=== PATIENT | female | born 1955 | race Caucasian/White ===

== ENCOUNTER → 2020-01-07 09:47 | Outpatient (CLI) | payer MEDICARE, SELFPAY ==
[2020-01-07 11:02] LABS: Blood Urea Nitrogen 19 mg/dL (7-17); Calcium 9.2 mg/dL (8.4-10.2); Carbon Dioxide 31 mmol/L (22-32); Chloride 107 mmol/L (98-107); Glucose 86 mg/dL (80-110); HEMOLYSIS < 15 (0-50); Potassium 4.5 mmol/L (3.4-5.1); Sodium 139 mmol/L (137-145)
[2020-01-07 11:52] LABS: Vitamin D 25 Hydroxy (D3) 29.5 ng/mL (30.0-100.0)
== END ==
PROVIDERS: PCP Student in an Organized Health Care Education/Training Program; Referring Provider Student in an Organized Health Care Education/Training Program; Visit Provider Student in an Organized Health Care Education/Training Program
DX: I10 Essential (primary) hypertension (principal); D86.9 Sarcoidosis, unspecified; E55.9 Vitamin D deficiency, unspecified
CPT/HCPCS: 36415; 80048; 82306

== ENCOUNTER → 2020-04-12 13:34 | Outpatient (CLI) | payer MEDICARE, SELFPAY ==
[2020-04-12] MEDS: COVID-19 VACC #1, MRNA(MOD) 100 MCG/0.5 ML VIAL IM (13:43)
== END ==
PROVIDERS: PCP Student in an Organized Health Care Education/Training Program; Visit Provider Internal Medicine
DX: Z23 Encounter for immunization (principal)
CPT/HCPCS: 0011A; 91301

== ENCOUNTER → 2020-05-10 13:25 | Outpatient (CLI) | payer MEDICARE, MEDICAID, SELFPAY ==
[2020-05-10] MEDS: COVID-19 VACC #2, MRNA(MOD) 100 MCG/0.5 ML VIAL IM (13:33)
== END ==
PROVIDERS: PCP Student in an Organized Health Care Education/Training Program; Visit Provider Internal Medicine
DX: Z23 Encounter for immunization (principal)
CPT/HCPCS: 0012A; 91301

== ENCOUNTER → 2020-05-17 13:09 | Outpatient (CLI) | payer MEDICARE, MEDICAID, SELFPAY | PROVIDERS: PCP Student in an Organized Health Care Education/Training Program; Referring Provider Student in an Organized Health Care Education/Training Program; Visit Provider Student in an Organized Health Care Education/Training Program | DX: Z13.820 Encounter for screening for osteoporosis (principal); Z78.0 Asymptomatic menopausal state; D86.9 Sarcoidosis, unspecified; Z91.89 Other specified personal risk factors, not elsewhere classified; Z87.891 Personal history of nicotine dependence; Z82.62 Family history of osteoporosis | CPT/HCPCS: 77080; 77081 ==

== ENCOUNTER → 2020-07-12 17:50 | Outpatient (CLI) | payer MEDICARE, MEDICAID, SELFPAY ==
--- NOTE | 2020-07-12 17:52 | DI.RAD.S_ITS ---
PROCEDURE: XR CERVICAL SPINE 2V OR 3V INDICATIONS: unexplained change in height TECHNIQUE: 3 view(s) of the cervical spine were acquired. COMPARISON: None. FINDINGS: Bones: No fracture. Multilevel spondylosis/endplate changes. Diffuse facet arthropathy. Severe diffuse narrowing of the cervical disc spaces throughout the entire cervical spine with relative sparing at C3-C4. Grade 1 retrolisthesis of C4 on C5 and C5 on C6. Levocurvature is noted of the cervical spine. Soft tissues: No prevertebral soft tissue swelling. IMPRESSION: Severe spondylosis and facet arthropathy as above Dictated by: Clint De La Cruz M.D. on 07/13/2020 at 8:18 Approved by: Clint De La Cruz M.D. on 07/13/2020 at 8:20
--- NOTE | 2020-07-12 17:52 | DI.RAD.S_ITS ---
PROCEDURE: XR LUMBAR SPINE 2-3V INDICATIONS: Low back pain TECHNIQUE: 3 views of the lumbar spine were acquired. COMPARISON: None. FINDINGS: Bones: No fracture . multilevel spondylosis/endplate changes. Diffuse facet arthropathy. Straightening of the normal lordotic curvature. Severe diffuse narrowing of the lumbar disc spaces, moderate narrowing at L5-S1. Partially visualized scoliosis with dextrocurvature of the lumbar spine. Soft tissues: Overlying bowel gas pattern is normal. No suspicious soft tissue calcifications. IMPRESSION: Severe diffuse lumbar spondylosis and facet arthropathy. Dextro scoliosis of the lumbar spine. Dictated by: Clint De La Cruz M.D. on 07/13/2020 at 8:32 Approved by: lCint De La Cruz M.D. on 07/13/2020 at 8:33
--- NOTE | 2020-07-12 17:52 | DI.RAD.S_ITS ---
PROCEDURE: XR THORACIC SPINE 1V INDICATIONS: unexplained change in height TECHNIQUE: 3 views of the thoracic spine were acquired. COMPARISON: None. FINDINGS: Bones: No fracture. Multilevel spondylosis/endplate changes. Diffuse facet arthropathy. Moderate diffuse narrowing of the thoracic disc spaces. Partially visualized scoliosis. Lower cervical spondylosis also noted. Increased thoracic kyphosis. Soft tissues: No paravertebral stripe thickening. IMPRESSION: Moderate diffuse thoracic spondylosis and facet disease. Dictated by: Clint De La Cruz M.D. on 07/13/2020 at 8:33 Approved by: Clint De La Cruz M.D. on 07/13/2020 at 8:34
== END ==
PROVIDERS: PCP Student in an Organized Health Care Education/Training Program; Referring Provider Student in an Organized Health Care Education/Training Program; Visit Provider Student in an Organized Health Care Education/Training Program
DX: M54.6 Pain in thoracic spine (principal); R29.890 Loss of height; M47.814 Spondylosis without myelopathy or radiculopathy, thoracic region; M47.816 Spondylosis without myelopathy or radiculopathy, lumbar region; M41.26 Other idiopathic scoliosis, lumbar region; M47.812 Spondylosis without myelopathy or radiculopathy, cervical region
CPT/HCPCS: 72020; 72040; 72100

== ENCOUNTER → 2021-01-17 09:13 | Outpatient (CLI) | payer MEDICARE, MEDICAID, SELFPAY ==
[2021-01-17 10:31] LABS: BUN Creatinine Ratio 20.7 (6-22); Blood Urea Nitrogen 23 mg/dL (7-17); Calcium 9.5 mg/dL (8.4-10.2); Carbon Dioxide 28 mmol/L (22-32); Chloride 102 mmol/L (98-107); Estimated Glomerular Filt Rate 49.2 mL/min (>60); Glucose 86 mg/dL (80-110); HEMOLYSIS < 15 (0-50); Potassium 4.6 mmol/L (3.4-5.1); Sodium 135 mmol/L (137-145)
== END ==
PROVIDERS: PCP Student in an Organized Health Care Education/Training Program; Referring Provider Student in an Organized Health Care Education/Training Program; Visit Provider Student in an Organized Health Care Education/Training Program
DX: I10 Essential (primary) hypertension (principal); E55.9 Vitamin D deficiency, unspecified
CPT/HCPCS: 36415; 80048; 82306

== ENCOUNTER 2021-02-06 15:15 | Outpatient (RCR) | payer MEDICARE, MEDICAID, SELFPAY ==
--- NOTE | 2021-01-24 15:15 | PT.OIE ---
Current Diagnoses Stiffness of other specified joint, not elsewhere classified (01/24/21) Lumbago with sciatica, left side (01/24/21) Pain in thoracic spine (01/24/21) Loss of height (01/24/21) Visit Care Team Role Provider Type Savage Kendall MD Attending Provider Physician Family Provider Primary Care Provider Referring Provider Specialty: Internal Medicine Address: [address] [place] [address], [address], [facility] Email: [email or web address] Physical Therapy Initial Evaluation PT-OP-A Visit Information Start: 01/24/21 17:34 Freq: Status: Active Protocol: Document 01/24/21 14:30 DCW (Rec: 01/24/21 17:45 DCW [id number]) Out-Patient Physical Therapy Visit Information Visit Information Visit Type Initial Evaluation Visit Start Time 14:30 Visit Stop Time 15:15 Total Visit Minutes 45 Visit Number 1 Number of DIRECTOR MATERNAL CHILD Visits 0 Evaluation Information Evaluation Date 01/24/21 PT-OP-B Current Condition Start: 01/24/21 17:34 Freq: Status: Active Protocol: Document 01/24/21 14:30 DCW (Rec: 01/24/21 17:45 DCW [id number]) Current Condition History of Current Condition Onset Date Multi-year history Current Complaints Degenerative changes in low back, mid back, and neck, stiffness and pain History of Current Condition Pt is a 65 year old female presenting with a multi-year history of low back, mid back, and cervical pain and stiffness. Pt notes that over the last few years, she has lost ~3 inches of height. Has significant pain throughout entire spine, has been unable to vaccum, standing to do dishes is really tough. Pt reports that if she stands completely straight, or if she is completely bent over, she is okay, but any position in between causes problems. Pt notes that frequently when walking, she experiences L LE numbness with a lot of pain right on my left buttcheek. Additionally, pt watches her grandson, who weighs 26 pounds , two days each week, and has difficulty holding him longer than a few minutes. Pt would also like to get back to doing gentle yoga. Prior Treatments and Tests Cervical x-ray: FINDINGS: Multilevel spondylosis/ endplate changes. Diffuse facet arthropathy. Severe diffuse narrowing of the cervical disc spaces throughout the entire cervical spine with relative sparing at C3-C4. Grade 1 retrolisthesis of C4 on C5 and C5 on C6. Levocurvature is noted of the cervical spine. abida De La Cruz M.D. on 07/13 Thoracic x-ray: MPRESSION: Moderate diffuse thoracic spondylosis and facet disease. abida De La Cruz M.D. on Lumbar x-ray: IMPRESSION: Severe diffuse lumbar spondylosis and facet arthropathy. Dextro scoliosis of the lumbar spine. abida De La Cruz M.D. on 2020 Treatment Goals Patient/Caregiver Goals My main goal is to get back to doing yoga. PT-OP-C Subjective Start: 01/24/21 17:34 Freq: Status: Active Protocol: Document 01/24/21 14:30 DCW (Rec: 01/24/21 17:45 DCW [id number]) OP-PT Subjective Patient Comments Patient Comments I don't know what I should be doing to help myself, and I don't know what I should be avoiding. Patient Questionnaires Oswestry Low Back Index Oswestry Score 13/50 = 26% Oswestry Impairment 20 to 39% Impaired (Score 20- 39) PT-OP-F Manual Assessment Start: 01/24/21 17:34 Freq: Status: Active Protocol: Document 01/24/21 14:30 DCW (Rec: 01/24/21 17:53 DCW [id number]) Manual Assessments Soft Tissue Assessment Soft Tissue Mobility Assessment Moderate tone left piriformis, bilateral paraspinals. mod- severe tone bilateral upper trap, scalenes, and levator. Joint Mobility Assessment Joint Mobility Assessment R hip stiffness with PROM, positive clunk. limited ROM and joint mobilization hypomobility along entire spine, C/T/L. PT-OP-K Range of Motion Start: 01/24/21 17:34 Freq: Status: Active Protocol: Document 01/24/21 14:30 DCW (Rec: 01/25/21 10:11 DCW [id number]) Lumbar Spine Range of Motion Lumbar Spine Active Degrees Testing Position Standing Flexion 55 Extension 10 Lateral Flexion Left 50 Lateral Flexion Right 45 Comments Lateral flexion measured in cm from fingertip to floor PT-OP-L Special Tests Start: 01/24/21 17:34 Freq: Status: Active Protocol: Document 01/24/21 14:30 DCW (Rec: 01/25/21 10:11 DCW [id number]) Special Tests Lumbar Spine Special Tests Lateral SI compression Test Results Negative Straight Leg Raise Test Results Mild hamstring tightness Slump Test Results Negative Manual Traction Test Results Significant relief Compression Test Results Increased pain in lumbar spine A-P Shearing Test Results Negative Hip Special Tests Piriformis Test Results Reproduces L LE radicular symptoms TAMIKA Test Results Negative PT-OP-M Strength Start: 01/24/21 17:34 Freq: Status: Active Protocol: Document 01/24/21 14:30 DCW (Rec: 01/25/21 10:11 DCW [id number]) Trunk Strength Trunk Manual Muscle Testing Testing Position Supine Core Stabilization Difficulty with contraction of TrA with verbal cues, 4-/5 Hip Strength Hip Manual Muscle Testing Bilateral Flexion (L2) 5 Normal Abduction 5 Normal Adduction 5 Normal External Rotation 5 Normal Internal Rotation 5 Normal Knee Strength Knee Manual Muscle Testing Bilateral Flexion (S2) 5 Normal Extension (L3) 5 Normal PT-OP-Q Treatments Start: 01/24/21 17:34 Freq: Status: Active Protocol: Document 01/24/21 14:30 DCW (Rec: 01/24/21 17:49 DCW [id number]) Therapeutic Exercises Supine Exercises 1 Supine Exercise Name Piriformis stretch Side left Comments Figure-4, Knee to opposite shoulder Sitting Exercises 1 Sitting Exercise Name Piriformis stretch Side left Comments Seated figure-4 PT-OP-T Assessment and Plan Start: 01/24/21 17:34 Freq: Status: Active Protocol: Document 01/24/21 14:30 DCW (Rec: 01/25/21 10:24 DCW [id number]) Physical Therapy Assessment Rehab Potential Rehabilitation Potential Good Evaluation Complexity Number of Personal Factors/Comorbidities 3 or More Number of Body Systems Impaired 3 Clinical Presentation at Evaluation Unstable Impairments Impairments Activity Tolerance,Functional Activities,Functional Mobility ,Pain,ROM,Soft Tissue Mobility ,Strength Goals Four Impairment Pt unable to vacuum home to do back pain Kids Activities Coach Goal (LTG) Pt to report splitting vacuuming duties with her 50/50 to 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 LTG Duration 03/26/21 Three Impairment Pt has difficulty holding young grandson Correction Goal (LTG) Pt to report ability to hold grandson for 15 minutes without increased low back pain LTG Duration 03/26/21 Two Impairment Pt unable to participate in gentle yoga program Correction Goal (LTG) Pt to return to yoga program at least 2 days/week with no increased low back pain LTG Duration 03/26/21 One Impairment Pt does not have an appropriate home exercise program Short Term Goal (STG) Pt to be independent and compliant with an appropriate HEP STG Duration 02/23/21 Assessment Summary Assessment Pt presents with signs and symptoms consistent with referring diagnosis of loss of disc height, as well as DDD of entire spine, limited cervical and lumbar ROM, core weakness, left-sided sciatica, and hypertonia of left piriformis. Pt limited with certain daily activities, like vacuuming, participating in yoga, holding her young grandson, or washing dishes at her sink. Pt should benefit from skilled therapy focusing on strengthening, ROM, STM, tone management, pain control, and flexibility. Physical Therapy Plan Frequency and Duration Frequency of Treatment 2x/Week Duration of Treatment Two months Plan of Care Start Date 01/24/21 Plan of Care End Date 03/26/21 Therapeutic Interventions Therapeutic Interventions Aquatic Therapy,Home Exercise Program,Manual Therapy, Neuromuscular Re-education, Patient/Caregiver Education, Self-Care/Home Management,Soft Tissue Mobilization, Therapeutic Activities, Therapeutic Exercises Modalities Cold Pack/Ice Massage,Electric Stimulation,Hot Packs, Ultrasound Next Visit Focus/Plan Next Note Type Treatment Note Next Visit Plan STM, stretching, core strengthening
--- NOTE | 2021-01-24 15:15 | PT.OPPOC ---
Physical, Occupational & Speech Therapy At [facility] Current Diagnoses Stiffness of other specified joint, not elsewhere classified (01/24/21) Lumbago with sciatica, left side (01/24/21) Pain in thoracic spine (01/24/21) Loss of height (01/24/21) Visit Care Team Role Provider Type Savage Kendall MD Attending Provider Physician Family Provider Primary Care Provider Referring Provider Specialty: Internal Medicine Address: [address] [place] [place] [address], [address], [facility] Email: [email or web address] Plan Of Care PT-OP-T Assessment and Plan Start: 01/24/21 17:34 Freq: Status: Active Protocol: Document 01/24/21 14:30 DCW (Rec: 01/25/21 10:24 DCW [id number]) Physical Therapy Assessment Rehab Potential Rehabilitation Potential Good Evaluation Complexity Number of Personal Factors/Comorbidities 3 or More Number of Body Systems Impaired 3 Clinical Presentation at Evaluation Unstable Impairments Impairments Activity Tolerance,Functional Activities,Functional Mobility ,Pain,ROM,Soft Tissue Mobility ,Strength Goals Four Impairment Pt unable to vacuum home to do back pain School Speech Language Pathologist Goal (LTG) Pt to report splitting vacuuming duties with her 50/50 to 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 LTG Duration 03/26/21 Three Impairment Pt has difficulty holding young grandson Retirement Goal (LTG) Pt to report ability to hold grandson for 15 minutes without increased low back pain LTG Duration 03/26/21 Two Impairment Pt unable to participate in gentle yoga program School Speech Language Pathologist Goal (LTG) Pt to return to yoga program at least 2 days/week with no increased low back pain LTG Duration 03/26/21 One Impairment Pt does not have an appropriate home exercise program Short Term Goal (STG) Pt to be independent and compliant with an appropriate HEP STG Duration 02/23/21 Assessment Summary Assessment Pt presents with signs and symptoms consistent with referring diagnosis of loss of disc height, as well as DDD of entire spine, limited cervical and lumbar ROM, core weakness, left-sided sciatica, and hypertonia of left piriformis. Pt limited with certain daily activities, like vacuuming, participating in yoga, holding her young grandson, or washing dishes at her sink. Pt should benefit from skilled therapy focusing on strengthening, ROM, STM, tone management, pain control, and flexibility. Physical Therapy Plan Frequency and Duration Frequency of Treatment 2x/Week Duration of Treatment Two months Plan of Care Start Date 01/24/21 Plan of Care End Date 03/26/21 Therapeutic Interventions Therapeutic Interventions Aquatic Therapy,Home Exercise Program,Manual Therapy, Neuromuscular Re-education, Patient/Caregiver Education, Self-Care/Home Management,Soft Tissue Mobilization, Therapeutic Activities, Therapeutic Exercises Modalities Cold Pack/Ice Massage,Electric Stimulation,Hot Packs, Ultrasound Next Visit Focus/Plan Next Note Type Treatment Note Next Visit Plan STM, stretching, core strengthening Plan of Care Dates Plan of Care Start Date 01/24/21 Plan of Care End Date 03/26/21 Electronically Signed by: Yovani Sanchez, PT 01/25/21 1024 Please Sign and Return: I have reviewed this Plan of Care and certify that the skilled therapy services above are required to meet the patient?s needs. Physician Signature Date Printed Name and Credentials Clinical Instructor Signature Printed Name and Credentials
--- NOTE | 2021-01-26 15:15 | PT.OTN ---
Current Diagnoses Stiffness of other specified joint, not elsewhere classified (01/26/21) Lumbago with sciatica, left side (01/26/21) Pain in thoracic spine (01/26/21) Loss of height (01/26/21) Physical Therapy Treatment Note PT-OP-A Visit Information Start: 01/24/21 17:34 Freq: Status: Active Protocol: Document 01/26/21 14:30 DCW (Rec: 01/26/21 15:15 DCW [id number]) Out-Patient Physical Therapy Visit Information Visit Information Visit Type Treatment Note Visit Start Time 14:30 Visit Stop Time 15:15 Total Visit Minutes 45 Visit Number 2 Number of PAYROLL TAX ANALYST Visits 0 Evaluation Information Evaluation Date 01/24/21 PT-OP-B Current Condition Start: 01/24/21 17:34 Freq: Status: Active Protocol: Document 01/24/21 14:30 DCW (Rec: 01/24/21 17:45 DCW [id number]) Current Condition History of Current Condition Onset Date Multi-year history Current Complaints Degenerative changes in low back, mid back, and neck, stiffness and pain History of Current Condition Pt is a 65 year old female presenting with a multi-year history of low back, mid back, and cervical pain and stiffness. Pt notes that over the last few years, she has lost ~3 inches of height. Has significant pain throughout entire spine, has been unable to vaccum, standing to do dishes is really tough. Pt reports that if she stands completely straight, or if she is completely bent over, she is okay, but any position in between causes problems. Pt notes that frequently when walking, she experiences L LE numbness with a lot of pain right on my left buttcheek. Additionally, pt watches her grandson, who weighs 26 pounds , two days each week, and has difficulty holding him longer than a few minutes. Pt would also like to get back to doing gentle yoga. Prior Treatments and Tests Cervical x-ray: FINDINGS: Multilevel spondylosis/ endplate changes. Diffuse facet arthropathy. Severe diffuse narrowing of the cervical disc spaces throughout the entire cervical spine with relative sparing at C3-C4. Grade 1 retrolisthesis of C4 on C5 and C5 on C6. Levocurvature is noted of the cervical spine. per Clint De La Cruz M.D. on 07/13 Thoracic x-ray: MPRESSION: Moderate diffuse thoracic spondylosis and facet disease. per Clint De La Cruz M.D. on Lumbar x-ray: IMPRESSION: Severe diffuse lumbar spondylosis and facet arthropathy. Dextro scoliosis of the lumbar spine. per Clint De La Cruz M.D. on 2020 Treatment Goals Patient/Caregiver Goals My main goal is to get back to doing yoga. PT-OP-C Subjective Start: 01/24/21 17:34 Freq: Status: Active Protocol: Document 01/26/21 14:30 DCW (Rec: 01/26/21 15:15 DCW [id number]) OP-PT Subjective Patient Comments Patient Comments I did the leg stretches yesterday, and then was able to do some yoga today. I have discovered that I can recreate some of the leg pain and numbness if I bend to the left . PT-OP-F Manual Assessment Start: 01/24/21 17:34 Freq: Status: Active Protocol: Document 01/24/21 14:30 DCW (Rec: 01/24/21 17:53 DCW [id number]) Manual Assessments Soft Tissue Assessment Soft Tissue Mobility Assessment Moderate tone left piriformis, bilateral paraspinals. mod- severe tone bilateral upper trap, scalenes, and levator. Joint Mobility Assessment Joint Mobility Assessment R hip stiffness with PROM, positive clunk. limited ROM and joint mobilization hypomobility along entire spine, C/T/L. PT-OP-K Range of Motion Start: 01/24/21 17:34 Freq: Status: Active Protocol: Document 01/24/21 14:30 DCW (Rec: 01/25/21 10:11 DCW [id number]) Lumbar Spine Range of Motion Lumbar Spine Active Degrees Testing Position Standing Flexion 55 Extension 10 Lateral Flexion Left 50 Lateral Flexion Right 45 Comments Lateral flexion measured in cm from fingertip to floor PT-OP-L Special Tests Start: 01/24/21 17:34 Freq: Status: Active Protocol: Document 01/24/21 14:30 DCW (Rec: 01/25/21 10:11 DCW [id number]) Special Tests Lumbar Spine Special Tests Lateral SI compression Test Results Negative Straight Leg Raise Test Results Mild hamstring tightness Slump Test Results Negative Manual Traction Test Results Significant relief Compression Test Results Increased pain in lumbar spine A-P Shearing Test Results Negative Hip Special Tests Piriformis Test Results Reproduces L LE radicular symptoms TAMIKA Test Results Negative PT-OP-M Strength Start: 01/24/21 17:34 Freq: Status: Active Protocol: Document 01/24/21 14:30 DCW (Rec: 01/25/21 10:11 DCW [id number]) Trunk Strength Trunk Manual Muscle Testing Testing Position Supine Core Stabilization Difficulty with contraction of TrA with verbal cues, 4-/5 Hip Strength Hip Manual Muscle Testing Bilateral Flexion (L2) 5 Normal Abduction 5 Normal Adduction 5 Normal External Rotation 5 Normal Internal Rotation 5 Normal Knee Strength Knee Manual Muscle Testing Bilateral Flexion (S2) 5 Normal Extension (L3) 5 Normal PT-OP-Q Treatments Start: 01/24/21 17:34 Freq: Status: Active Protocol: Document 01/26/21 14:30 DCW (Rec: 01/26/21 15:15 DCW [id number]) Gym Equipment Therapeutic Ball 1 Exercise Details Low Trunk Rotation Ball Size/Color Red - 55 cm Body Position Supine Therapeutic Exercises Supine Exercises 2 Supine Exercise Name Hamstring stretch Side bilateral 1 Supine Exercise Name Piriformis stretch Side bilateral Comments Knee to opposite shoulder Sidelying Exercises 1 Sidelying Exercise Name Hip Abduction Side bilateral Manual Therapy Treatment Soft Tissue Mobilization 1 Body Location B QL, ITB, Piriformis Mobilization Type Strumming,Sustained Pressure, Trigger Point Release Intensity/Depth Moderate Body Position Sidelying Manual Traction 1 Details Long-axis LE traction /c strap Body Position Supine PT-OP-T Assessment and Plan Start: 01/24/21 17:34 Freq: Status: Active Protocol: Document 01/26/21 14:30 DCW (Rec: 01/26/21 15:15 DCW [id number]) Physical Therapy Assessment Impairments Impairments Activity Tolerance,Functional Activities,Functional Mobility ,Pain,ROM,Soft Tissue Mobility ,Strength Goals Four Impairment Pt unable to vacuum home to do back pain Nursing Home Goal (LTG) Pt to report splitting vacuuming duties with her 50/50 to show improvement in tolerance to telephone sterilizer. LTG Duration 03/26/21 Three Impairment Pt has difficulty holding young grandson Nursing Home Goal (LTG) Pt to report ability to hold grandson for 15 minutes without increased low back pain LTG Duration 03/26/21 Two Impairment Pt unable to participate in gentle yoga program Hospital Carrier Goal (LTG) Pt to return to yoga program at least 2 days/week with no increased low back pain LTG Duration 03/26/21 One Impairment Pt does not have an appropriate home exercise program Short Term Goal (STG) Pt to be independent and compliant with an appropriate HEP STG Duration 02/23/21 Assessment Summary Assessment Pt tolerated today's treatment well, motivated to perform HEP, would like to work more on cervical spine next visit. Physical Therapy Plan Frequency and Duration Frequency of Treatment 2x/Week Duration of Treatment Two months Plan of Care Start Date 01/24/21 Plan of Care End Date 03/26/21 Therapeutic Interventions Therapeutic Interventions Aquatic Therapy,Home Exercise Program,Manual Therapy, Neuromuscular Re-education, Patient/Caregiver Education, Self-Care/Home Management,Soft Tissue Mobilization, Therapeutic Activities, Therapeutic Exercises Modalities Cold Pack/Ice Massage,Electric Stimulation,Hot Packs, Ultrasound Next Visit Focus/Plan Next Note Type Treatment Note Next Visit Plan STM, stretching, core strengthening
--- NOTE | 2021-01-31 11:15 | PT.OTN ---
Current Diagnoses Stiffness of other specified joint, not elsewhere classified (01/31/21) Lumbago with sciatica, left side (01/31/21) Pain in thoracic spine (01/31/21) Loss of height (01/31/21) Physical Therapy Treatment Note PT-OP-A Visit Information Start: 01/24/21 17:34 Freq: Status: Active Protocol: Document 01/31/21 10:30 DCW (Rec: 01/31/21 11:15 DCW [id number]) Out-Patient Physical Therapy Visit Information Visit Information Visit Type Treatment Note Visit Start Time 10:30 Visit Stop Time 11:15 Total Visit Minutes 45 Visit Number 3 Number of BELT LOOP MACHINE OPERATOR Visits 0 Evaluation Information Evaluation Date 01/24/21 PT-OP-B Current Condition Start: 01/24/21 17:34 Freq: Status: Active Protocol: Document 01/24/21 14:30 DCW (Rec: 01/24/21 17:45 DCW [id number]) Current Condition History of Current Condition Onset Date Multi-year history Current Complaints Degenerative changes in low back, mid back, and neck, stiffness and pain History of Current Condition Pt is a 65 year old female presenting with a multi-year history of low back, mid back, and cervical pain and stiffness. Pt notes that over the last few years, she has lost ~3 inches of height. Has significant pain throughout entire spine, has been unable to vaccum, standing to do dishes is really tough. Pt reports that if she stands completely straight, or if she is completely bent over, she is okay, but any position in between causes problems. Pt notes that frequently when walking, she experiences L LE numbness with a lot of pain right on my left buttcheek. Additionally, pt watches her grandson, who weighs 26 pounds , two days each week, and has difficulty holding him longer than a few minutes. Pt would also like to get back to doing gentle yoga. Prior Treatments and Tests Cervical x-ray: FINDINGS: Multilevel spondylosis/ endplate changes. Diffuse facet arthropathy. Severe diffuse narrowing of the cervical disc spaces throughout the entire cervical spine with relative sparing at C3-C4. Grade 1 retrolisthesis of C4 on C5 and C5 on C6. Levocurvature is noted of the cervical spine. per Clint De La Cruz M.D. on 07/13 Thoracic x-ray: MPRESSION: Moderate diffuse thoracic spondylosis and facet disease. per Clint De La Cruz M.D. on Lumbar x-ray: IMPRESSION: Severe diffuse lumbar spondylosis and facet arthropathy. Dextro scoliosis of the lumbar spine. per Clint De La Cruz M.D. on 2020 Treatment Goals Patient/Caregiver Goals My main goal is to get back to doing yoga. PT-OP-C Subjective Start: 01/24/21 17:34 Freq: Status: Active Protocol: Document 01/31/21 10:30 DCW (Rec: 01/31/21 11:15 DCW [id number]) OP-PT Subjective Patient Comments Patient Comments Pt doing well overall, would like her neck to be more addressed today. PT-OP-F Manual Assessment Start: 01/24/21 17:34 Freq: Status: Active Protocol: Document 01/24/21 14:30 DCW (Rec: 01/24/21 17:53 DCW [id number]) Manual Assessments Soft Tissue Assessment Soft Tissue Mobility Assessment Moderate tone left piriformis, bilateral paraspinals. mod- severe tone bilateral upper trap, scalenes, and levator. Joint Mobility Assessment Joint Mobility Assessment R hip stiffness with PROM, positive clunk. limited ROM and joint mobilization hypomobility along entire spine, C/T/L. PT-OP-K Range of Motion Start: 01/24/21 17:34 Freq: Status: Active Protocol: Document 01/24/21 14:30 DCW (Rec: 01/25/21 10:11 DCW [id number]) Lumbar Spine Range of Motion Lumbar Spine Active Degrees Testing Position Standing Flexion 55 Extension 10 Lateral Flexion Left 50 Lateral Flexion Right 45 Comments Lateral flexion measured in cm from fingertip to floor PT-OP-L Special Tests Start: 01/24/21 17:34 Freq: Status: Active Protocol: Document 01/24/21 14:30 DCW (Rec: 01/25/21 10:11 DCW [id number]) Special Tests Lumbar Spine Special Tests Lateral SI compression Test Results Negative Straight Leg Raise Test Results Mild hamstring tightness Slump Test Results Negative Manual Traction Test Results Significant relief Compression Test Results Increased pain in lumbar spine A-P Shearing Test Results Negative Hip Special Tests Piriformis Test Results Reproduces L LE radicular symptoms TAMIKA Test Results Negative PT-OP-M Strength Start: 01/24/21 17:34 Freq: Status: Active Protocol: Document 01/24/21 14:30 DCW (Rec: 01/25/21 10:11 DCW [id number]) Trunk Strength Trunk Manual Muscle Testing Testing Position Supine Core Stabilization Difficulty with contraction of TrA with verbal cues, 4-/5 Hip Strength Hip Manual Muscle Testing Bilateral Flexion (L2) 5 Normal Abduction 5 Normal Adduction 5 Normal External Rotation 5 Normal Internal Rotation 5 Normal Knee Strength Knee Manual Muscle Testing Bilateral Flexion (S2) 5 Normal Extension (L3) 5 Normal PT-OP-Q Treatments Start: 01/24/21 17:34 Freq: Status: Active Protocol: Document 01/31/21 10:30 DCW (Rec: 01/31/21 11:15 DCW [id number]) Therapeutic Exercises Sitting Exercises 2 Sitting Exercise Name Upper trap/Scalene stretches Standing Exercises 1 Standing Exercise Name Corner pec stretch Manual Therapy Treatment Soft Tissue Mobilization 2 Body Location Upper Trap, Scalenes, Levator, R>L Mobilization Type Strumming,Sustained Pressure Intensity/Depth Moderate Body Position Supine PT-OP-T Assessment and Plan Start: 01/24/21 17:34 Freq: Status: Active Protocol: Document 01/31/21 10:30 DCW (Rec: 01/31/21 11:15 DCW [id number]) Physical Therapy Assessment Impairments Impairments Activity Tolerance,Functional Activities,Functional Mobility ,Pain,ROM,Soft Tissue Mobility ,Strength Goals Four Impairment Pt unable to vacuum home to do back pain Halfway Goal (LTG) Pt to report splitting vacuuming duties with her 50/50 to show improvement in tolerance to driver engineer. LTG Duration 03/26/21 Three Impairment Pt has difficulty holding young grandson Halfway Goal (LTG) Pt to report ability to hold grandson for 15 minutes without increased low back pain LTG Duration 03/26/21 Two Impairment Pt unable to participate in gentle yoga program Halfway Goal (LTG) Pt to return to yoga program at least 2 days/week with no increased low back pain LTG Duration 03/26/21 One Impairment Pt does not have an appropriate home exercise program Short Term Goal (STG) Pt to be independent and compliant with an appropriate HEP STG Duration 02/23/21 Assessment Summary Assessment Pre treatment cervical ROM today was 40 flexion, 25 extension, 40 L rot, 55 R rot, 20 L LB, 30 R LB. Post-tx was 55 flexion, 35 extension, 55 L rot, 65 R rot, 25 L LB, 35 R LB. Pt demonstrated good knowledge with new HEP stretches. Physical Therapy Plan Frequency and Duration Frequency of Treatment 2x/Week Duration of Treatment Two months Plan of Care Start Date 01/24/21 Plan of Care End Date 03/26/21 Therapeutic Interventions Therapeutic Interventions Aquatic Therapy,Home Exercise Program,Manual Therapy, Neuromuscular Re-education, Patient/Caregiver Education, Self-Care/Home Management,Soft Tissue Mobilization, Therapeutic Activities, Therapeutic Exercises Modalities Cold Pack/Ice Massage,Electric Stimulation,Hot Packs, Ultrasound Next Visit Focus/Plan Next Note Type Treatment Note Next Visit Plan STM, stretching, core strengthening
--- NOTE | 2021-02-02 16:00 | PT.OTN ---
Current Diagnoses Stiffness of other specified joint, not elsewhere classified (02/02/21) Lumbago with sciatica, left side (02/02/21) Pain in thoracic spine (02/02/21) Loss of height (02/02/21) Physical Therapy Treatment Note PT-OP-A Visit Information Start: 01/24/21 17:34 Freq: Status: Active Protocol: Document 02/02/21 15:15 DCW (Rec: 02/02/21 16:00 DCW [id number]) Out-Patient Physical Therapy Visit Information Visit Information Visit Type Treatment Note Visit Start Time 15:15 Visit Stop Time 16:00 Total Visit Minutes 45 Visit Number 4 Number of EDUCATIONAL INSTITUTION PRESIDENT Visits 0 Evaluation Information Evaluation Date 01/24/21 PT-OP-B Current Condition Start: 01/24/21 17:34 Freq: Status: Active Protocol: Document 01/24/21 14:30 DCW (Rec: 01/24/21 17:45 DCW [id number]) Current Condition History of Current Condition Onset Date Multi-year history Current Complaints Degenerative changes in low back, mid back, and neck, stiffness and pain History of Current Condition Pt is a 65 year old female presenting with a multi-year history of low back, mid back, and cervical pain and stiffness. Pt notes that over the last few years, she has lost ~3 inches of height. Has significant pain throughout entire spine, has been unable to vaccum, standing to do dishes is really tough. Pt reports that if she stands completely straight, or if she is completely bent over, she is okay, but any position in between causes problems. Pt notes that frequently when walking, she experiences L LE numbness with a lot of pain right on my left buttcheek. Additionally, pt watches her grandson, who weighs 26 pounds , two days each week, and has difficulty holding him longer than a few minutes. Pt would also like to get back to doing gentle yoga. Prior Treatments and Tests Cervical x-ray: FINDINGS: Multilevel spondylosis/ endplate changes. Diffuse facet arthropathy. Severe diffuse narrowing of the cervical disc spaces throughout the entire cervical spine with relative sparing at C3-C4. Grade 1 retrolisthesis of C4 on C5 and C5 on C6. Levocurvature is noted of the cervical spine. per Clint De La Cruz M.D. on 07/13 Thoracic x-ray: MPRESSION: Moderate diffuse thoracic spondylosis and facet disease. per Clint De La Cruz M.D. on Lumbar x-ray: IMPRESSION: Severe diffuse lumbar spondylosis and facet arthropathy. Dextro scoliosis of the lumbar spine. per Clint De La Cruz M.D. on 2020 Treatment Goals Patient/Caregiver Goals My main goal is to get back to doing yoga. PT-OP-C Subjective Start: 01/24/21 17:34 Freq: Status: Active Protocol: Document 02/02/21 15:15 DCW (Rec: 02/02/21 16:00 DCW [id number]) OP-PT Subjective Patient Comments Patient Comments Pt did some yard work, which is always a low back issue, but it will be fine. PT-OP-F Manual Assessment Start: 01/24/21 17:34 Freq: Status: Active Protocol: Document 01/24/21 14:30 DCW (Rec: 01/24/21 17:53 DCW [id number]) Manual Assessments Soft Tissue Assessment Soft Tissue Mobility Assessment Moderate tone left piriformis, bilateral paraspinals. mod- severe tone bilateral upper trap, scalenes, and levator. Joint Mobility Assessment Joint Mobility Assessment R hip stiffness with PROM, positive clunk. limited ROM and joint mobilization hypomobility along entire spine, C/T/L. PT-OP-K Range of Motion Start: 01/24/21 17:34 Freq: Status: Active Protocol: Document 01/24/21 14:30 DCW (Rec: 01/25/21 10:11 DCW [id number]) Lumbar Spine Range of Motion Lumbar Spine Active Degrees Testing Position Standing Flexion 55 Extension 10 Lateral Flexion Left 50 Lateral Flexion Right 45 Comments Lateral flexion measured in cm from fingertip to floor PT-OP-L Special Tests Start: 01/24/21 17:34 Freq: Status: Active Protocol: Document 01/24/21 14:30 DCW (Rec: 01/25/21 10:11 DCW [id number]) Special Tests Lumbar Spine Special Tests Lateral SI compression Test Results Negative Straight Leg Raise Test Results Mild hamstring tightness Slump Test Results Negative Manual Traction Test Results Significant relief Compression Test Results Increased pain in lumbar spine A-P Shearing Test Results Negative Hip Special Tests Piriformis Test Results Reproduces L LE radicular symptoms TAMIKA Test Results Negative PT-OP-M Strength Start: 01/24/21 17:34 Freq: Status: Active Protocol: Document 01/24/21 14:30 DCW (Rec: 01/25/21 10:11 DCW [id number]) Trunk Strength Trunk Manual Muscle Testing Testing Position Supine Core Stabilization Difficulty with contraction of TrA with verbal cues, 4-/5 Hip Strength Hip Manual Muscle Testing Bilateral Flexion (L2) 5 Normal Abduction 5 Normal Adduction 5 Normal External Rotation 5 Normal Internal Rotation 5 Normal Knee Strength Knee Manual Muscle Testing Bilateral Flexion (S2) 5 Normal Extension (L3) 5 Normal PT-OP-Q Treatments Start: 01/24/21 17:34 Freq: Status: Active Protocol: Document 02/02/21 15:15 DCW (Rec: 02/02/21 16:00 DCW [id number]) Manual Therapy Treatment Soft Tissue Mobilization 1 Body Location B QL, ITB, Piriformis Mobilization Type Strumming,Sustained Pressure, Trigger Point Release Intensity/Depth Moderate Body Position Sidelying Manual Traction 1 Details Long-axis LE traction /c strap Body Position Supine PT-OP-T Assessment and Plan Start: 01/24/21 17:34 Freq: Status: Active Protocol: Document 02/02/21 15:15 DCW (Rec: 02/02/21 16:00 DCW [id number]) Physical Therapy Assessment Impairments Impairments Activity Tolerance,Functional Activities,Functional Mobility ,Pain,ROM,Soft Tissue Mobility ,Strength Goals Four Impairment Pt unable to vacuum home to do back pain Boomswing Operator Goal (LTG) Pt to report splitting vacuuming duties with her 50/50 to show improvement in tolerance to on site coordinator. LTG Duration 03/26/21 Three Impairment Pt has difficulty holding young grandson Mcc Goal (LTG) Pt to report ability to hold grandson for 15 minutes without increased low back pain LTG Duration 03/26/21 Two Impairment Pt unable to participate in gentle yoga program Boomswing Operator Goal (LTG) Pt to return to yoga program at least 2 days/week with no increased low back pain LTG Duration 03/26/21 One Impairment Pt does not have an appropriate home exercise program Short Term Goal (STG) Pt to be independent and compliant with an appropriate HEP STG Duration 02/23/21 Assessment Summary Assessment Focused more on low back STM today due to stiffness after pt was doing yard work. Pt feeling good about overall progress and her HEP, will likely discharge following her next scheduled visit. Physical Therapy Plan Frequency and Duration Frequency of Treatment 2x/Week Duration of Treatment Two months Plan of Care Start Date 01/24/21 Plan of Care End Date 03/26/21 Therapeutic Interventions Therapeutic Interventions Aquatic Therapy,Home Exercise Program,Manual Therapy, Neuromuscular Re-education, Patient/Caregiver Education, Self-Care/Home Management,Soft Tissue Mobilization, Therapeutic Activities, Therapeutic Exercises Modalities Cold Pack/Ice Massage,Electric Stimulation,Hot Packs, Ultrasound Next Visit Focus/Plan Next Note Type Treatment Note Next Visit Plan STM, stretching, core strengthening
--- NOTE | 2021-02-06 15:53 | PT.OTN ---
Current Diagnoses Stiffness of other specified joint, not elsewhere classified (02/06/21) Lumbago with sciatica, left side (02/06/21) Pain in thoracic spine (02/06/21) Loss of height (02/06/21) Physical Therapy Treatment Note PT-OP-A Visit Information Start: 01/24/21 17:34 Freq: Status: Active Protocol: Document 02/06/21 15:15 DCW (Rec: 02/06/21 15:53 DCW [id number]) Out-Patient Physical Therapy Visit Information Visit Information Visit Type Discharge Summary Visit Start Time 15:15 Visit Stop Time 15:45 Total Visit Minutes 30 Visit Number 5 Number of ACCOUNTING AUDITOR Visits 0 Evaluation Information Evaluation Date 01/24/21 PT-OP-B Current Condition Start: 01/24/21 17:34 Freq: Status: Active Protocol: Document 01/24/21 14:30 DCW (Rec: 01/24/21 17:45 DCW [id number]) Current Condition History of Current Condition Onset Date Multi-year history Current Complaints Degenerative changes in low back, mid back, and neck, stiffness and pain History of Current Condition Pt is a 65 year old female presenting with a multi-year history of low back, mid back, and cervical pain and stiffness. Pt notes that over the last few years, she has lost ~3 inches of height. Has significant pain throughout entire spine, has been unable to vaccum, standing to do dishes is really tough. Pt reports that if she stands completely straight, or if she is completely bent over, she is okay, but any position in between causes problems. Pt notes that frequently when walking, she experiences L LE numbness with a lot of pain right on my left buttcheek. Additionally, pt watches her grandson, who weighs 26 pounds , two days each week, and has difficulty holding him longer than a few minutes. Pt would also like to get back to doing gentle yoga. Prior Treatments and Tests Cervical x-ray: FINDINGS: Multilevel spondylosis/ endplate changes. Diffuse facet arthropathy. Severe diffuse narrowing of the cervical disc spaces throughout the entire cervical spine with relative sparing at C3-C4. Grade 1 retrolisthesis of C4 on C5 and C5 on C6. Levocurvature is noted of the cervical spine. per Clint De La Cruz M.D. on 07/13 Thoracic x-ray: MPRESSION: Moderate diffuse thoracic spondylosis and facet disease. per Clint De La Cruz M.D. on Lumbar x-ray: IMPRESSION: Severe diffuse lumbar spondylosis and facet arthropathy. Dextro scoliosis of the lumbar spine. per Clint De La Cruz M.D. on 2020 Treatment Goals Patient/Caregiver Goals My main goal is to get back to doing yoga. PT-OP-C Subjective Start: 01/24/21 17:34 Freq: Status: Active Protocol: Document 02/06/21 15:15 DCW (Rec: 02/06/21 15:53 DCW [id number]) OP-PT Subjective Patient Comments Patient Comments Actually, it's a good day. I think we've accomplished what we needed to accomplish, and I feel good about it. PT-OP-F Manual Assessment Start: 01/24/21 17:34 Freq: Status: Active Protocol: Document 01/24/21 14:30 DCW (Rec: 01/24/21 17:53 DCW [id number]) Manual Assessments Soft Tissue Assessment Soft Tissue Mobility Assessment Moderate tone left piriformis, bilateral paraspinals. mod- severe tone bilateral upper trap, scalenes, and levator. Joint Mobility Assessment Joint Mobility Assessment R hip stiffness with PROM, positive clunk. limited ROM and joint mobilization hypomobility along entire spine, C/T/L. PT-OP-K Range of Motion Start: 01/24/21 17:34 Freq: Status: Active Protocol: Document 01/24/21 14:30 DCW (Rec: 01/25/21 10:11 DCW [id number]) Lumbar Spine Range of Motion Lumbar Spine Active Degrees Testing Position Standing Flexion 55 Extension 10 Lateral Flexion Left 50 Lateral Flexion Right 45 Comments Lateral flexion measured in cm from fingertip to floor PT-OP-L Special Tests Start: 01/24/21 17:34 Freq: Status: Active Protocol: Document 01/24/21 14:30 DCW (Rec: 01/25/21 10:11 DCW [id number]) Special Tests Lumbar Spine Special Tests Lateral SI compression Test Results Negative Straight Leg Raise Test Results Mild hamstring tightness Slump Test Results Negative Manual Traction Test Results Significant relief Compression Test Results Increased pain in lumbar spine A-P Shearing Test Results Negative Hip Special Tests Piriformis Test Results Reproduces L LE radicular symptoms TAMIKA Test Results Negative PT-OP-M Strength Start: 01/24/21 17:34 Freq: Status: Active Protocol: Document 01/24/21 14:30 DCW (Rec: 01/25/21 10:11 DCW [id number]) Trunk Strength Trunk Manual Muscle Testing Testing Position Supine Core Stabilization Difficulty with contraction of TrA with verbal cues, 4-/5 Hip Strength Hip Manual Muscle Testing Bilateral Flexion (L2) 5 Normal Abduction 5 Normal Adduction 5 Normal External Rotation 5 Normal Internal Rotation 5 Normal Knee Strength Knee Manual Muscle Testing Bilateral Flexion (S2) 5 Normal Extension (L3) 5 Normal PT-OP-Q Treatments Start: 01/24/21 17:34 Freq: Status: Active Protocol: Document 02/06/21 15:15 DCW (Rec: 02/06/21 15:53 DCW [id number]) Manual Therapy Treatment Soft Tissue Mobilization 1 Body Location B QL, ITB, Piriformis Mobilization Type Strumming,Sustained Pressure, Trigger Point Release Intensity/Depth Moderate Body Position Sidelying PT-OP-T Assessment and Plan Start: 01/24/21 17:34 Freq: Status: Active Protocol: Document 02/06/21 15:15 DCW (Rec: 02/06/21 15:53 DCW [id number]) Physical Therapy Assessment Impairments Impairments Activity Tolerance,Functional Activities,Functional Mobility ,Pain,ROM,Soft Tissue Mobility ,Strength Goals Four Impairment Pt unable to vacuum home to do back pain Valet Attendant Goal (LTG) Pt to report splitting vacuuming duties with her 50/50 to show improvement in tolerance to kindergarten prep teacher. LTG Duration Improving Three Impairment Pt has difficulty holding young grandson Chcf Goal (LTG) Pt to report ability to hold grandson for 15 minutes without increased low back pain LTG Duration Improving Two Impairment Pt unable to participate in gentle yoga program Valet Attendant Goal (LTG) Pt to return to yoga program at least 2 days/week with no increased low back pain LTG Duration Met One Impairment Pt does not have an appropriate home exercise program Short Term Goal (STG) Pt to be independent and compliant with an appropriate HEP STG Duration Met Progress Towards Goals Progress Towards Goals Progressing Toward Goals Assessment Summary Assessment Pt doing very well overall, approaching her goals, feels comfortable switching to independent HEP. Pt will be discharged from skilled PT at this time. Physical Therapy Plan Frequency and Duration Frequency of Treatment 2x/Week Duration of Treatment Two months Plan of Care Start Date 01/24/21 Plan of Care End Date 03/26/21 Therapeutic Interventions Therapeutic Interventions Aquatic Therapy,Home Exercise Program,Manual Therapy, Neuromuscular Re-education, Patient/Caregiver Education, Self-Care/Home Management,Soft Tissue Mobilization, Therapeutic Activities, Therapeutic Exercises Modalities Cold Pack/Ice Massage,Electric Stimulation,Hot Packs, Ultrasound Discharge Physical Therapy Discharge Reasons Patient Request Next Visit Focus/Plan Next Note Type Discharge Summary
== END 2021-04-17 09:36 ==
LOC: PHYS 15:15
PROVIDERS: Family Provider Student in an Organized Health Care Education/Training Program; PCP Student in an Organized Health Care Education/Training Program; Referring Provider Student in an Organized Health Care Education/Training Program; Visit Provider Student in an Organized Health Care Education/Training Program
DX: M54.6 Pain in thoracic spine (principal); R29.890 Loss of height; M25.69 Stiffness of other specified joint, not elsewhere classified; M54.42 Lumbago with sciatica, left side
CPT/HCPCS: 97110; 97140; 97162

== ENCOUNTER → 2021-06-26 15:15 | Outpatient (CLI) | payer MEDICARE, SELFPAY ==
--- NOTE | 2021-06-26 | DI.MG.S_ITS ---
BILATERAL DIGITAL SCREENING MAMMOGRAM 3D/2D WITH CAD: 06/26/2021 CLINICAL: Routine screening. Family history of breast cancer. Comparison is made to exams dated: 04/30/2019 mammogram and 03/30/2014 mammogram - outside facility. There are scattered fibroglandular elements in both breasts. Current study was also evaluated with a Computer Aided Detection (CAD) system. No significant masses, calcifications, or other findings are seen in either breast. There has been no significant interval change. IMPRESSION: NEGATIVE There is no mammographic evidence of malignancy. A 1 year screening mammogram is recommended. This exam was interpreted at Station ID: [id number]. NOTE: For mammograms, a report in lay terms will be sent to the patient. Approximately 15% of breast malignancies will not be visualized mammographically. In the management of a palpable breast mass, a negative mammogram must not discourage biopsy of a clinically suspicious lesion. Electronically Signed By: Maurizio read/elza:06/27/2021 08:27:33 letter sent: Normal Exam ACR BI-RADS Category 1: Negative [id number]
== END ==
PROVIDERS: Family Provider Student in an Organized Health Care Education/Training Program; PCP Student in an Organized Health Care Education/Training Program; Referring Provider Student in an Organized Health Care Education/Training Program; Visit Provider Student in an Organized Health Care Education/Training Program
DX: Z12.31 Encounter for screening mammogram for malignant neoplasm of breast (principal); Z80.3 Family history of malignant neoplasm of breast
CPT/HCPCS: 77063; 77067

== ENCOUNTER → 2021-12-05 08:28 | Outpatient (CLI) | payer MEDICARE, MEDICAID, SELFPAY ==
--- NOTE | 2021-12-05 08:28 | DI.US.S_ITS ---
PROCEDURE: US EXTREMITY NONVASC LOWER RT INDICATIONS: Swelling and history of masses in leg above knee TECHNIQUE: Real-time scanning was performed of the right thigh, with image documentation. COMPARISON: None. FINDINGS: Irregular partially cystic hypoechoic region is seen adjacent to the area of the scar at the right anterior thigh measuring 5.2 x 1.5 x 2.8 cm. Circumscribed hypointense lesion measuring 0.9 x 0.7 x 0.7 cm within the deep subcutaneous tissues anterolateral to the knee. IMPRESSION: 1. Irregular partially cystic area measuring 5.2 cm in the region of the surgical scar at the anterior right thigh is of uncertain etiology, possibly representing postsurgical changes versus an irregular plexiform mass. 2. Nonspecific 0.9 cm circumscribed ovoid hypoechoic lesion in the deep subcutaneous tissues anterolateral to the thigh, which may represent a complex cyst versus benign or malignant soft tissue mass. 3. Recommend targeted MRI of the femur/thigh with and without contrast for further evaluation. Dictated by: Maurizio Solano M.D. on 12/05/2021 at 11:02 Approved by: Maurizio Solano M.D. on 12/05/2021 at 11:11
== END ==
PROVIDERS: Family Provider Student in an Organized Health Care Education/Training Program; PCP Nurse Practitioner; Referring Provider Nurse Practitioner; Visit Provider Nurse Practitioner
DX: R22.41 Localized swelling, mass and lump, right lower limb (principal); Z86.018 Personal history of other benign neoplasm
CPT/HCPCS: 76882

== ENCOUNTER → 2021-12-18 12:51 | Outpatient (CLI) | payer MEDICARE, MEDICAID, SELFPAY ==
--- NOTE | 2021-12-18 13:22 | DI.MRI.S_ITS ---
PROCEDURE: MR FEMUR RT WO/W CON INDICATIONS: abnormal US imaging TECHNIQUE: Noncontrast coronal T1 spin echo and STIR, sagittal T1 spin echo with fat saturation and STIR, axial T1 spin echo and T2 fast spin echo with fat saturation. After the administration of contrast, axial/sagittal/coronal T1 spin echo with fat saturation through the right thigh . COMPARISON: [facility], US, US EXTREMITY NONVASC LOWER RT, 12/05/2021, 9:01. FINDINGS: Image quality: Excellent. Bones: The visualized bone marrow demonstrates normal signal on all sequences. The overlying cortex appears intact. No abnormal intraosseous enhancement. Soft tissues: Heterogeneous signal is seen in the subcutaneous tissues at the anterior aspect of the distal thigh in the region of the prior surgery measuring up to 6.8 cm and superior inferior extent by approximately 3.1 x 1.5 cm on axial images. This corresponds with prior sonographic findings on the ultrasound from 12/05/2021. Predominantly fat signal is seen with some [id number] edema but no significant contrast enhancement. Findings most likely represent postsurgical scarring and fat necrosis. A circumscribed [id number] mass is seen in the subcutaneous tissues of the anterior distal thigh just anterior to the distal quadriceps tendon insertion. The mass measures approximately 0.8 x 0.7 x 0.8 cm with homogeneous postcontrast enhancement. This corresponds with the separate sonographic finding on the prior exam. No additional enhancing soft tissue mass is seen. The musculature of the thigh is normal in signal intensity and bulk. No significant right knee effusion. There is a small medial popliteal cyst. There is mild proximal hamstring tendinosis. IMPRESSION: 1. Heterogeneous nonenhancing 6.8 cm area of abnormal signal at the anterior right thigh in the region of the prior surgery is most consistent with postsurgical scarring and fat necrosis. 2. 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 Dictated by: Maurizio Solano M.D. on 12/19/2021 at 10:02 Approved by: Maurizio Solano M.D. on 12/19/2021 at 10:14
== END ==
PROVIDERS: Family Provider Student in an Organized Health Care Education/Training Program; PCP Nurse Practitioner; Referring Provider Nurse Practitioner; Visit Provider Nurse Practitioner
DX: R22.41 Localized swelling, mass and lump, right lower limb (principal)
CPT/HCPCS: 73720; A9579

== ENCOUNTER → 2022-02-12 07:47 | Outpatient (CLI) | payer MEDICARE, MEDICAID, SELFPAY ==
[2022-02-12 10:12] LABS: Alanine Aminotransferase 20 IU/L (<35); Albumin 3.9 g/dL (3.5-5.0); Albumin Globulin Ratio 1.6 (1.0-2.8); Alkaline Phosphatase 61 U/L (38-126); Aspartate Aminotransferase 24 IU/L (14-36); BUN Creatinine Ratio 23.5 (6-22); Bilirubin Total 0.6 mg/dL (0.2-1.3); Blood Urea Nitrogen 23 mg/dL (7-17); Calcium 8.9 mg/dL (8.4-10.2); Carbon Dioxide 28 mmol/L (22-32); Chloride 104 mmol/L (98-107); Cholesterol 245 mg/dL (140-199); Estimated Glomerular Filt Rate > 60 mL/min (>60); Globulin 2.5 g/dL (1.7-4.1); Glucose 80 mg/dL (80-110); HDL Cholesterol 54 mg/dL (40-60); HEMOLYSIS < 15 (0-50); LDL Cholesterol Calculated 166 mg/dL (<100); Potassium 4.3 mmol/L (3.4-5.1); Sodium 137 mmol/L (137-145); Total Protein 6.4 g/dL (6.3-8.2); Triglycerides 124 mg/dL (35-150)
[2022-02-12 10:32] LABS: Free T3, Triiodothyronine Free 3.52 pg/mL (2.77-5.27); Free T4, Direct Thyroxine 0.93 ng/dL (0.78-2.19)
[2022-02-12 12:45] LABS: Hep C Virus Ab w/Reflex Quant NEGATIVE s/c (NEGATIVE)
== END ==
PROVIDERS: Family Provider Student in an Organized Health Care Education/Training Program; PCP Nurse Practitioner; Referring Provider Nurse Practitioner; Visit Provider Nurse Practitioner
DX: E78.2 Mixed hyperlipidemia (principal); I10 Essential (primary) hypertension; F51.04 Psychophysiologic insomnia; N18.31 Chronic kidney disease, stage 3a; Z79.899 Other long term (current) drug therapy; Z11.59 Encounter for screening for other viral diseases
CPT/HCPCS: 36415; 80053; 80061; 84439; 84443; 84481; 86803

== ENCOUNTER → 2022-02-20 09:31 | Outpatient (CLI) | payer MEDICARE, MEDICAID, SELFPAY ==
[2022-02-20 12:17] LABS: Creatinine Urine Random 16.3 mg/dL
[2022-02-20 12:24] LABS: Microalbumin Urine Random < 0.6 mg/dL (0-1.6)
[2022-02-21 13:47] LABS: Fecal Immunochemical Test Negative (Negative)
== END ==
PROVIDERS: Family Provider Student in an Organized Health Care Education/Training Program; PCP Nurse Practitioner; Referring Provider Nurse Practitioner; Visit Provider Nurse Practitioner
DX: E78.2 Mixed hyperlipidemia (principal); F51.04 Psychophysiologic insomnia; I10 Essential (primary) hypertension; N18.31 Chronic kidney disease, stage 3a; Z79.899 Other long term (current) drug therapy; Z12.11 Encounter for screening for malignant neoplasm of colon
CPT/HCPCS: 82043; 82274; 82570

== ENCOUNTER → 2022-05-28 08:05 | Outpatient (CLI) | payer MEDICARE, MEDICAID, SELFPAY ==
[2022-05-28 09:20] LABS: Alanine Aminotransferase 18 IU/L (<35); Albumin 3.7 g/dL (3.5-5.0); Albumin Globulin Ratio 1.6 (1.0-2.8); Alkaline Phosphatase 55 U/L (38-126); Aspartate Aminotransferase 22 IU/L (14-36); BUN Creatinine Ratio 21.4 (6-22); Bilirubin Total 0.6 mg/dL (0.2-1.3); Blood Urea Nitrogen 21 mg/dL (7-17); Calcium 8.9 mg/dL (8.4-10.2); Carbon Dioxide 30 mmol/L (22-32); Chloride 105 mmol/L (98-107); Cholesterol 145 mg/dL (140-199); Estimated Glomerular Filt Rate > 60 mL/min (>60); Globulin 2.3 g/dL (1.7-4.1); Glucose 85 mg/dL (80-110); HDL Cholesterol 59 mg/dL (40-60); HEMOLYSIS < 15 (0-50); LDL Cholesterol Calculated 66 mg/dL (<100); Sodium 139 mmol/L (137-145); Triglycerides 100 mg/dL (35-150)
[2022-05-28 09:28] LABS: Potassium 4.3 mmol/L (3.4-5.1)
== END ==
PROVIDERS: Family Provider Student in an Organized Health Care Education/Training Program; PCP Nurse Practitioner; Referring Provider Nurse Practitioner; Visit Provider Nurse Practitioner
DX: E78.2 Mixed hyperlipidemia (principal); Z79.899 Other long term (current) drug therapy
CPT/HCPCS: 36415; 80053; 80061

== ENCOUNTER → 2022-11-04 07:56 | Outpatient (CLI) | payer MEDICARE, MEDICAID, SELFPAY ==
[2022-11-04 09:10] LABS: Creatinine Urine Random 51.3 mg/dL
[2022-11-04 09:20] LABS: Microalbumin Urine Random < 0.6 mg/dL (0-1.6)
[2022-11-04 09:38] LABS: Alanine Aminotransferase 20 IU/L (<35); Albumin 3.8 g/dL (3.5-5.0); Albumin Globulin Ratio 1.4 (1.0-2.8); Alkaline Phosphatase 57 U/L (38-126); Aspartate Aminotransferase 27 IU/L (14-36); BUN Creatinine Ratio 22.5 (6-22); Bilirubin Total 0.4 mg/dL (0.2-1.3); Blood Urea Nitrogen 23 mg/dL (7-17); Calcium 9.5 mg/dL (8.4-10.2); Carbon Dioxide 30 mmol/L (22-32); Chloride 105 mmol/L (98-107); Cholesterol 153 mg/dL (140-199); Estimated Glomerular Filt Rate > 60 mL/min (>60); Globulin 2.7 g/dL (1.7-4.1); Glucose 88 mg/dL (80-110); HDL Cholesterol 59 mg/dL (40-60); HEMOLYSIS < 15 (0-50); LDL Cholesterol Calculated 74 mg/dL (<100); Potassium 4.6 mmol/L (3.4-5.1); Sodium 138 mmol/L (137-145); Total Protein 6.5 g/dL (6.3-8.2); Triglycerides 101 mg/dL (35-150)
[2022-11-04 09:55] LABS: Free T3, Triiodothyronine Free 4.37 pg/mL (2.77-5.27); Free T4, Direct Thyroxine 0.96 ng/dL (0.78-2.19)
[2022-11-04 10:09] LABS: Thyroid Stimulating Hormone 2.76 uIU/mL (0.47-4.68)
== END ==
PROVIDERS: Family Provider Student in an Organized Health Care Education/Training Program; PCP Nurse Practitioner; Referring Provider Nurse Practitioner; Visit Provider Nurse Practitioner
DX: E78.2 Mixed hyperlipidemia (principal); I10 Essential (primary) hypertension; N18.31 Chronic kidney disease, stage 3a; Z79.899 Other long term (current) drug therapy
CPT/HCPCS: 36415; 80053; 80061; 82043; 82570; 84439; 84443; 84481

== ENCOUNTER → 2022-12-06 16:20 | Outpatient (CLI) | payer MEDICARE, SELFPAY ==
--- NOTE | 2022-12-06 16:22 | DI.RAD.S_ITS ---
PROCEDURE: XR CERVICAL SPINE 4V OR 5V INDICATIONS: neck pain TECHNIQUE: 5 views of the cervical spine were acquired. COMPARISON: [facility], , XR CERVICAL SPINE 2V OR 3V, 07/12/2020, 17:54. FINDINGS: Bones: No fractures or dislocations to the T1 level. No suspicious bony lesions. Disc space narrowing hypertrophic facet joints in the mid to lower cervical spine with reversal the normal cervical lordosis. Normal craniovertebral relationships. Osseous foraminal stenosis at C5-6 and C6-7 on the left as well as C4-5 on the right Soft tissues: Prevertebral soft tissues are normal in thickness. IMPRESSION: Degenerative disc disease and arthropathy with foraminal stenosis Approved by: Sanjeev Wayne M.D. on 12/06/2022 at 20:08
== END ==
PROVIDERS: Family Provider Student in an Organized Health Care Education/Training Program; PCP Nurse Practitioner; Referring Provider Family Medicine; Visit Provider Family Medicine
DX: M47.812 Spondylosis without myelopathy or radiculopathy, cervical region (principal); M50.30 Other cervical disc degeneration, unspecified cervical region; M48.02 Spinal stenosis, cervical region
CPT/HCPCS: 72050

== ENCOUNTER → 2022-12-10 09:15 | Outpatient (CLI) | payer MEDICARE, SELFPAY ==
--- NOTE | 2022-12-10 09:16 | DI.MRI.S_ITS ---
PROCEDURE: MR CERVICAL SPINE WO CON INDICATIONS: degenerative disease, contrast per radiology TECHNIQUE: Noncontrast sagittal T1 spin echo and T2 fast spin echo, sagittal STIR, foraminal oblique sagittal T2 fast spin echo, and axial gradient echo or T2 fast spin echo through the cervical spine. COMPARISON: [facility], CR, XR CERVICAL SPINE 4V OR 5V, 12/06/2022, 16:24. FINDINGS: Image quality: Excellent. Alignment and Curvature: Straightening of normal cervical lordosis with reversal. Grade 1 retrolisthesis of C4 on C5 and C5 on C6. Bone Marrow: Mild multilevel degenerative endplate changes. Marrow demonstrates normal overall signal. Spinal Cord: Visualized spinal cord has normal size and signal. No cerebellar tonsillar herniation. Paraspinous Soft Tissues: No paravertebral masses. Prevertebral soft tissues are normal in thickness. C2-C3: Disc desiccation. No central canal stenosis. Facet and uncovertebral arthropathy. Mild bilateral neural foraminal stenosis. C3-C4: Disc desiccation and height loss. Posterior disc osteophyte complex abutting the ventral cord. Mild central canal stenosis. Facet and uncovertebral arthropathy. Mild bilateral neural foraminal stenosis. C4-C5: Disc desiccation height loss with posterior disc osteophyte complex abutting and mildly displacing the cord with loss of CSF signal surrounding the cord. Moderate central canal stenosis. Facet and uncovertebral arthropathy. Severe bilateral neural foraminal stenosis. C5-C6: Disc desiccation height loss with posterior disc osteophyte complex abutting and deforming the cord. Severe central canal stenosis. Facet and uncovertebral arthropathy. Severe bilateral neural foraminal stenosis. C6-C7: Disc desiccation height loss with posterior disc osteophyte complex abutting the ventral cord. Moderate central canal stenosis. Facet and uncovertebral arthropathy. Severe left and at least moderate right neural foraminal stenosis. C7-T1: Disc desiccation and height loss. No central canal stenosis. Facet and uncovertebral arthropathy. Moderate bilateral neural foraminal stenosis. IMPRESSION: 1. Multilevel degenerative changes of the cervical spine. This is most pronounced at C5-C6 with severe central canal stenosis and severe bilateral neural foraminal stenosis. 2. Additional levels of severe neural foraminal stenosis including severe bilateral neural foraminal stenosis C4-C5 and severe left neural foraminal stenosis at C6-C7. 3. Multilevel mild and moderate central canal stenosis as described above. Dictated by: Mark Weaver M.D. on 12/10/2022 at 12:09 Approved by: Mark Weaver M.D. on 12/10/2022 at 12:14
== END ==
PROVIDERS: Family Provider Student in an Organized Health Care Education/Training Program; PCP Nurse Practitioner; Referring Provider Family Medicine; Visit Provider Family Medicine
DX: M47.812 Spondylosis without myelopathy or radiculopathy, cervical region (principal); M43.6 Torticollis; M48.02 Spinal stenosis, cervical region
CPT/HCPCS: 72141

== ENCOUNTER 2023-01-02 09:16 | Outpatient (CLI) | payer MEDICARE, SELFPAY ==
[2023-01-02] VITALS (10 sets, daily range): BP systolic 134–187; BP diastolic 78–94; PULSE 18–98; RESP 14–99; TEMP 37.1; O2SAT 95–100
--- NOTE | 2023-01-02 09:18 | DI.RAD.S_ITS ---
PCEDURE: PAIN C/T INTERLAMINAR INJECT INDICATIONS: SPINAL STENOSIS COMPARISON: None. FINDINGS: Fluoroscopic spot filming was performed to verify placement of in epidural needle at the C6-C7 level(s), as labeled on the films. IMPRESSION: Fluoroscopic guidance utilized for cervical epidural steroid injection performed by referring provider. Dictated by: Jordan Giraldo M.D. on 01/02/2023 at 15:46 Approved by: Jordan Giraldo M.D. on 01/02/2023 at 15:52
[2023-01-02] MEDS: MIDAZOLAM 2 MG/2 ML VIAL IV (10:17)
[2023-01-02] MEDS: DEXAMETHASONE 10 MG/ML VIAL 20 MG INJ (10:22)
[2023-01-02] MEDS: BUPIVACAINE 0.25% (PF) VIAL 2 ML INJ (10:22)
[2023-01-02] MEDS: iopamidoL 15 ML VIAL 3 ML INJ (10:23)
[2023-01-02] MEDS: fentaNYL 100 MCG/2 ML INJ 50 MCG IV (10:25)
--- NOTE | 2023-01-02 10:38 | P.PCN_ITS ---
Date/Time/Diagnoses Date of procedure: 01/02/23 Time of procedure: 10:38 Pre-procedure diagnosis: 1. CERVICAL STENOSIS, 2. CERVICAL HNP WITH UPPER EXTREMITY RADICULAR FEATURES Post-procedure diagnosis: same Procedure Notes Procedure: 1. FLUORSCOPICALLY GUIDED CONTRAST CONTROLLED INTERLAMINAR EPIDURAL STEROID INJECTION - C6/7 TL EUGENE Indications: Dimitri is referred by RADHA Haji for treatment of Cervical HNP with Upper Extremity Paresthesias. Physician: Eitan Guzman Total Fluoroscopy time (seconds): 36 Total sedation minutes: 16 Complications: none Procedure in detail & Post-procedure care: FINDINGS Cervical Stenosis due to disc deterioration and nerve root irritation and nerve root irritation DESCRIPTION OF PROCEDURE Fluoroscopically guided, contrast-controlled C6/7 translaminar epidural steroid injection with conscious sedation. Following review of allergy and review of potential side effects and complications, including, but not necessarily limited to, infection, allergic reaction, local tissue breakdown, temporary as well as permanent nerve injury, stroke, paralysis, and possible , the patient indicated that patient understood and agreed to proceed. An informed consent document was signed by the patient, witnessed by a nurse, and placed in the patient's chart. Additionally, other treatment options including modalities, medications, and physical therapy were reviewed with the patient. After review of previous anaesthesic history and IV conscious sedation the patient was deemed safe to proceed with today?s procedure with IV conscious sedation as ASA class II designation. Safety time-out was performed to confirm patient ID, procedure to be performed and site of procedure. IV sedation was accomplished with a combination of 2mg of Versed and 50mcg of Fentanyl administered by the RN after DO order, titrated to patient comfort during the course of the procedure while the patient remained responsive to all verbal commands. In the prone position, following sterile prep and drape of the cervical region, the C6/7 translaminar space was identified fluoroscopically. The skin was anesthetized via a 25-gauge 1.5-inch needle with 1% lidocaine solution. At this point, a 25-gauge, 2.5-inch short bevel spinal needle was atraumatically introduced and advanced under fluoroscopic guidance into epidural space at the C6/7 translaminar space. Depth was confirmed on lateral view. Radiological data, including multiple fluoroscopic views of the cervical spine, reveal a spinal needle at the C6/7 translaminar space. Lateral views then show placement of the needle in the epidural space. Subsequent views show contrast material flowing superiorly and inferiorly in the epidural space. DSA fluoroscopy with live contrast injection, once again, confirmed no vascular or intrathecal uptake. At this point, using loss of resistance technique with saline and air, the epidural space was entered. Following negative aspiration, injection of jefferson roximately 1.5 cc of Isovue-200 with live fluoroscopy in the AP view confirmed epidural flow in the epidural space without vascular or intrathecal uptake observed. Subsequently, a test dose of 1 cc of 1% lidocaine solution was injected and patient was observed for two minutes without signs or symptoms of complications, including abdominal pain, shortness of breath, bilateral upper or lower extremity weakness, nausea and vomiting, prior to steroid injection. At this point, 2cc or 20mg of dexamethasone was then injected without incident. The patient tolerated the procedure well without signs or symptoms of complications prior to being transferred to the recovery area for further monitoring, The patient was then transferred to the recovery area where they were observed for an appropriate period of time after the injection. The patient reported a VAS score of 6 prior to the procedure and a post-procedure VAS of 0. POST OP INSTRUCTIONS The patient was provided a Pain Log to continue to record their response to the target-specific procedure prior to follow-up visit with the referring provider. Additionally, specific post-injection care instructions and a contact number to our office were provided if concerns arise regarding possible complications associated with the procedure are suspected.
== END 2023-01-02 11:00 | disposition home or self-care (01) ==
LOC: RAD 09:16
PROVIDERS: Family Provider Student in an Organized Health Care Education/Training Program; PCP Nurse Practitioner; Referring Provider Physical Medicine & Rehabilitation; Visit Provider Physical Medicine & Rehabilitation
DX: M48.02 Spinal stenosis, cervical region (principal); M54.12 Radiculopathy, cervical region
CPT/HCPCS: 62321; 99152; J1100; J2250; J3010; J3490

== ENCOUNTER 2023-03-04 08:51 | Outpatient (CLI) | payer MEDICARE, SELFPAY ==
[2023-03-04] VITALS (8 sets, daily range): BP systolic 131–171; BP diastolic 74–97; PULSE 66–79; RESP 14–20; TEMP 36.9; O2SAT 96–99
--- NOTE | 2023-03-04 09:15 | DI.RAD.S_ITS ---
PROCEDURE: PAIN C/T FACET INJ/BLK 1ST L INDICATIONS: FACET ARTHROPATHY COMPARISON: None. FINDINGS: Fluoroscopic spot filming was performed to verify placement of spinal needles at the 3 contiguous right cervical facet joints level(s), as labeled on the films. IMPRESSION: Imaging guidance provided for 3 level right cervical facet injection Dictated by: Jordan Giraldo M.D. on 03/04/2023 at 13:12 Approved by: Jordan Giraldo M.D. on 03/04/2023 at 13:12
[2023-03-04] MEDS: MIDAZOLAM 2 MG/2 ML VIAL IV (09:30)
[2023-03-04] MEDS: BUPIVACAINE 0.5% (PF) 10 ML VIAL 2 ML INJ (09:36)
[2023-03-04] MEDS: DEXAMETHASONE 10 MG/ML VIAL 30 MG INJ (09:37)
[2023-03-04] MEDS: iopamidoL 15 ML VIAL 3 ML INJ (09:37)
--- NOTE | 2023-03-04 09:51 | P.PCN_ITS ---
Date/Time/Diagnoses Date of procedure: 03/04/23 Time of procedure: 09:51 Pre-procedure diagnosis: 1. FACET ARTHROPATHY 2. AXIAL NECK PAIN Post-procedure diagnosis: same Procedure Notes Procedure: 1. FLUOROSCOPICALLY GUIDED, CONTRAST-CONTROLLED RIGHT C4/5, C5/6 AND C6/7 FACET JOINT INJECTIONS WITH CONSCIOUS SEDATION. Indications: Dimitri is referred by RADHA Haji for treatment of Axial Neck Pain Physician: Eitan Guzman Total Fluoroscopy time (seconds): 10 Total sedation minutes: 14 Complications: none Procedure in detail & Post-procedure care: DESCRIPTION OF PROCEDURE Fluoroscopically guided, contrast-controlled right C4/5, C5/6 and C6/7 facet joint injections with conscious sedation. Following review of allergy and review of potential side effects and complications, including, but not necessarily limited to, infection, allergic reaction, local tissue breakdown, stroke, temporary or permanent nerve injury and paralysis, the patient indicated that the patient understood and agreed to proceed. An informed consent document was signed by the patient, witnessed by a nurse, and placed in the patient's chart. Additionally, other treatment options including medications, modalities, and physical therapy were reviewed with the patient. After review of previous anaesthesic history and IV conscious sedation the patient was deemed safe to proceed with today?s procedure with IV conscious s edation as ASA class II designation. Safety time-out was performed to confirm patient ID, procedure to be performed and site of procedure. IV sedation was accomplished with a combination of 2mg of Versed was administered by the RN after DO order, titrated to patient comfort during the course of the procedure while the patient remained responsive to all verbal commands In the prone position, following sterile prep and drape of the cervical spine region, the posterior aspect of the right C4/5, C5/6 and C6/7 facet joints were identified fluoroscopically. The skin was anesthetized via a 25-gauge 1.5-inch needle with 1% lidocaine solution into the corresponding facet joints. At this point, a 25-gauge 2.5-inch spinal needle was atraumatically introduced and advanced under fluoroscopic guidance into the corresponding facet joints. Following negative aspiration, injections of approximately 0.2-cc of Isovue 200 confirmed interarticular placement without vascular uptake. At this point, a total of 1 cc including 0.5 cc or 5mg of dexamethasone combined with 0.5 cc of 1% lidocaine solution was injected without complication into each of the corresponding facet joints. The procedure tolerated the procedure well without signs or symptoms of complications prior to transfer to the recovery area continued monitoring without incident. The patient was then transferred to the recovery area where they were observed for an appropriate period of time after the injection. The patient reported a VAS score of 7 prior to the procedure and a post- procedure VAS of 1. POST OP INSTRUCTIONS They were provided a Pain Log to continue to record their response to the target-specific procedure prior to their follow-up visit with their referring physician. Additionally, specific post-injection care instructions and a contact number to our office were provided if concerns arise regarding possible complications associated with the procedure are suspected.
== END 2023-03-04 10:08 | disposition home or self-care (01) ==
LOC: RAD 08:52
PROVIDERS: Family Provider Student in an Organized Health Care Education/Training Program; PCP Nurse Practitioner; Referring Provider Physical Medicine & Rehabilitation; Visit Provider Physical Medicine & Rehabilitation
DX: M47.812 Spondylosis without myelopathy or radiculopathy, cervical region (principal)
CPT/HCPCS: 64490; 64491; 64492; 99152; J1100; J2250

== ENCOUNTER → 2023-04-22 15:34 | Outpatient (CLI) | payer MEDICARE, SELFPAY ==
--- NOTE | 2023-04-22 15:36 | DI.RAD.S_ITS ---
PROCEDURE: XR LUMBAR SPINE 2-3V INDICATIONS: lumbar pain radiating from bottock to thigh TECHNIQUE: 3 views of the lumbar spine were acquired. COMPARISON: [facility], CR, XR LUMBAR SPINE 2-3V, 07/12/2020, 17:54. FINDINGS: Bones: 5 [id number] vertebrae are present. There is trace retrolisthesis of L1 on L2. Superior endplate deformity is present at T12 unchanged. Multilevel moderate to severe degenerative disc space narrowing most prominent from L3-4 through L5-S1. Prominent foraminal narrowing is present T12-L1, L5-S1. No vertebral body compression fractures. No suspicious bony lesions. Soft tissues: Overlying bowel gas pattern is normal. No suspicious soft tissue calcifications. IMPRESSION: Multilevel degenerative disc and foraminal narrowing. Dictated by: Betsy Asencio M.D. on 04/22/2023 at 17:18 Approved by: Betsy Asencio M.D. on 04/22/2023 at 17:19
--- NOTE | 2023-04-22 15:36 | DI.RAD.S_ITS ---
PROCEDURE: XR HIP W PEL IF DONE RT 2V INDICATIONS: lumbar pain radiating from bottock to thigh TECHNIQUE: AP pelvis with lateral view(s) of the right hip(s). COMPARISON: None. FINDINGS: Bones: No fractures or dislocations. Pelvic ring appears intact. No suspicious bony lesions. Degenerative changes are present within the lower lumbar spine as well as bilateral hips. Soft tissues: The visualized bowel gas pattern is normal. Calcification is present overlying the mid pelvis, possibly related to calcified uterine fibroid. IMPRESSION: Lower lumbar spine as well as bilateral hip arthritic change. Dictated by: Betsy Asencio M.D. on 04/22/2023 at 17:17 Approved by: Betsy Asencio M.D. on 04/22/2023 at 17:18
== END ==
PROVIDERS: Family Provider Student in an Organized Health Care Education/Training Program; PCP Nurse Practitioner; Referring Provider Nurse Practitioner; Visit Provider Nurse Practitioner
DX: M47.816 Spondylosis without myelopathy or radiculopathy, lumbar region (principal); M47.817 Spondylosis without myelopathy or radiculopathy, lumbosacral region; M48.061 Spinal stenosis, lumbar region without neurogenic claudication; M48.07 Spinal stenosis, lumbosacral region; M54.50 Low back pain, unspecified; M25.551 Pain in right hip
CPT/HCPCS: 72100; 73502

== ENCOUNTER → 2023-05-20 10:10 | Outpatient (CLI) | payer MEDICARE, SELFPAY ==
[2023-05-20 10:55] LABS: Add Manual Diff / Slide Review NO; Basophils Absolute Auto 100 /uL (0-100); Basophils Percent Auto 0.6 % (0-2); Eosinophils Absolute Auto 300 /uL (0-450); Eosinophils Percent Auto 3.2 % (2-4); Hematocrit 41.8 % (36-46); Hemoglobin 14.3 g/dL (12.0-16.0); Lymphocytes Absolute Auto 2000 /uL (1100-4500); Lymphocytes Percent Auto 20.2 % (25-40); Mean Corpuscular HGB Conc 34.2 % (30-36); Mean Corpuscular Volume 84.8 fL (80-100); Monocytes Absolute Auto 600 /uL (0-900); Monocytes Percent Auto 6.3 % (3-14); Neutrophils Absolute Auto 6800 /uL (1500-7000); Neutrophils Percent Auto 69.7 % (50-75); Platelet Count 299 X10^3/uL (150-400); Red Blood Cell Count 4.92 X10^6/uL (4.0-5.2); Red Cell Distribution Width 12.9 % (11.6-14.8); White Blood Cell Count 9.8 X10^3/uL (4.5-11.0)
[2023-05-20 11:31] LABS: Alanine Aminotransferase 14 IU/L (<35); Albumin 4.2 g/dL (3.5-5.0); Albumin Globulin Ratio 1.6 (1.0-2.8); Alkaline Phosphatase 65 U/L (38-126); Aspartate Aminotransferase 24 IU/L (14-36); Bilirubin Total 0.8 mg/dL (0.2-1.3); Blood Urea Nitrogen 26 mg/dL (7-17); Calcium 10.2 mg/dL (8.4-10.2); Carbon Dioxide 29 mmol/L (22-32); Chloride 104 mmol/L (98-107); Estimated Glomerular Filt Rate 50 mL/min (>60); Globulin 2.6 g/dL (1.7-4.1); Glucose 89 mg/dL (80-110); HEMOLYSIS < 15 (0-50); Sodium 137 mmol/L (137-145); Total Protein 6.8 g/dL (6.3-8.2)
[2023-05-20 11:33] LABS: Potassium 5.5 mmol/L (3.4-5.1)
== END ==
PROVIDERS: Family Provider Student in an Organized Health Care Education/Training Program; PCP Nurse Practitioner; Referring Provider Nurse Practitioner; Visit Provider Nurse Practitioner
DX: L08.9 Local infection of the skin and subcutaneous tissue, unspecified (principal); S00.512A Abrasion of oral cavity, initial encounter
CPT/HCPCS: 36415; 80053; 85025

== ENCOUNTER → 2023-05-21 15:09 | Outpatient (CLI) | payer MEDICARE, SELFPAY ==
--- NOTE | 2023-05-21 15:11 | DI.RAD.S_ITS ---
Bone Density Report Name: ROXANN MOE Age: 67 Sex: Female Ethnicity: White Date of : 1955 Indication: postmenopausal; screening for osteoporosis; Referring Provider: GERMAN GANDARA Study: Bone densitometry was performed. Exam Date: May 21, 2023 Accession number: [id number] Bone Density: Region BMD T-score Z-score Classification AP Spine(L1, L2, L3) 1.445 3.9 5.8 Normal Femoral Neck (Left) 0.879 0.3 2.0 Normal Total Hip (Left) 1.023 0.7 2.1 Normal Femoral Neck (Right) 0.907 0.5 2.2 Normal Total Hip (Right) 1.047 0.9 2.3 Normal Total Hip Mean 1.035 0.8 2.2 Normal World Health Organization criteria for BMD impression classify patients as: Normal (T-score at or above -1.0), Osteopenia (T-score between -1.0 and -2.5), or Osteoporosis (T-score at or below -2.5). 10-year Fracture Risk: FRAX not reported because: All T-scores for Spine Total, Hip Total, Femoral Neck at or above -1.0 Previous Exams: -- Region Exam Age BMD T-score BMD Change BMD Change Date g/cm2 vs Baseline vs Previous -- AP Spine (L1-L3) 05/21/2023 67 1.445 3.9 0.039 (2.8%)# 0.039 (2.8%)# 05/17/2020 64 1.406 3.5 Total Hip(Left) 05/21/2023 67 1.023 0.7 -0.098 (-8.7%)# -0.098 (-8.7%)# 05/17/2020 64 1.120 1.5 Total Hip(Right) 05/21/2023 67 1.047 0.9 -0.037 (-3.4%)# -0.037 (-3.4%)# 05/17/2020 64 1.084 1.2 -- *Denotes significance at 95% confidence level, LSC for AP Spine = 0.022 g/cm2, LSC for Total Hip = 0.027 g/cm2 # Denotes dissimilar scan types or analysis methods Impression: The patient has normal bone mass. No significant bone loss was observed. Discussion: BONE DENSITY IS ABOVE THE MINIMUM DESIRABLE LEVEL AT ALL SKELETAL SITES TESTED. This patient's bone mineral density is above the minimum desirable level (T-score -1.0 or better) at all sites measured. The patient should follow a healthful lifestyle (good nutrition with adequate calcium and vitamin D, and appropriate weight-bearing exercise). Follow-Up: Consider repeating this study in 5 years or sooner if there is some new clinical indication. Reported by: BASSEM BECKFORD M.D. on 05/21/2023 3:40:00 PM.
--- NOTE | 2023-05-21 15:11 | DI.MG.S_ITS ---
BILATERAL DIGITAL SCREENING MAMMOGRAM 3D/2D WITH CAD: 05/21/2023 CLINICAL: Routine screening. Family history of breast cancer. Comparison is made to exams dated: 06/26/2021 mammogram - [facility], 04/30/2019 mammogram, and 03/30/2014 mammogram - outside facility. There are scattered areas of fibroglandular density in both breasts (category b / 25%-50% glandular tissue). Current study was also evaluated with a Computer Aided Detection (CAD) system. No significant masses, calcifications, or other findings are seen in either breast. There has been no significant interval change. IMPRESSION: NEGATIVE There is no mammographic evidence of malignancy. A 1 year screening mammogram is recommended. Based on the Tyrer Cuzick model (a risk assessment model) the patient's lifetime risk is 7.3% and her 10 year risk is 4.1%. According to the ACR, ACS, and NCCN guidelines, an annual breast MRI exam along with mammogram is recommended if the patient's lifetime risk is 20% or greater. This exam was interpreted at Station ID: [id number]. NOTE: For mammograms, a report in lay terms will be sent to the patient. Approximately 15% of breast malignancies will not be visualized mammographically. In the management of a palpable breast mass, a negative mammogram must not discourage biopsy of a clinically suspicious lesion. Electronically Signed By: Jaylan foster/elza:05/22/2023 07:29:07 letter sent: Normal Exam ACR BI-RADS Category 1: Negative [id number]
== END ==
PROVIDERS: Family Provider Student in an Organized Health Care Education/Training Program; PCP Nurse Practitioner; Referring Provider Nurse Practitioner; Visit Provider Nurse Practitioner
DX: Z12.31 Encounter for screening mammogram for malignant neoplasm of breast (principal); M81.0 Age-related osteoporosis without current pathological fracture; Z80.3 Family history of malignant neoplasm of breast; R92.323 Mammographic fibroglandular density, bilateral breasts
CPT/HCPCS: 77063; 77067; 77080

== ENCOUNTER → 2023-05-26 12:38 | Outpatient (CLI) | payer MEDICARE, SELFPAY ==
--- NOTE | 2023-05-26 12:59 | DI.MRI.S_ITS ---
PROCEDURE: MR LUMBAR SPINE WO CON INDICATIONS: lumbar back pain and sciatica TECHNIQUE: Noncontrast sagittal T1 spin echo and T2 fast echo, sagittal STIR, and T2 fast spin echo through the lumbar spine. In cases with scoliosis, additional coronal T2 fast spin echo may be performed. COMPARISON: None. FINDINGS: Image quality: Excellent. Alignment and Curvature: Grade 1 retrolisthesis of T12 on L1 and L1 on L2. Bone Marrow: Marrow is of normal overall signal. No acute vertebral body compression fractures. Spinal Cord: Conus medullaris terminates at the L1 level. Visualized cord demonstrates normal signal and size. Paraspinous Soft Tissues: No paravertebral masses. T12-L1: Disc height loss with broad-based disc bulge and facet effusions. L1-L2: Broad-based disc bulge, left facet effusion, bilateral facet arthrosis and mild ligamentum flavum hypertrophy. This causes mild spinal canal narrowing, mild to moderate left neural foraminal narrowing. L2-L3: Broad-based disc bulge, facet hypertrophy, facet effusions, ligamentum flavum hypertrophy causing moderate to severe spinal canal narrowing. L3-L4: Broad-based disc bulge, facet hypertrophy, right greater than left, left facet effusion, mild ligamentum flavum hypertrophy causing moderate to severe spinal canal narrowing, mild to moderate right neural foraminal narrowing. L4-L5: Disc osteophyte complex, facet hypertrophy, small right effusion. Mild bilateral neural foraminal narrowing. L5-S1: Bilateral facet hypertrophy and broad-based disc bulge. Moderate to severe left neural foraminal narrowing. IMPRESSION: Multilevel degenerative disc disease and facet arthrosis. Of note: Up to moderate to severe spinal canal narrowing at L2-3 and L3-4. Up to moderate to severe neural foraminal narrowing at the left side of L5-S1. Dictated by: Jameson Roper M.D. on 05/26/2023 at 14:29 Approved by: Jameson Roper M.D. on 05/26/2023 at 14:34
== END ==
LOC: MRI 12:39
PROVIDERS: Family Provider Student in an Organized Health Care Education/Training Program; PCP Nurse Practitioner; Referring Provider Nurse Practitioner; Visit Provider Nurse Practitioner
DX: M51.16 Intervertebral disc disorders with radiculopathy, lumbar region (principal); M51.17 Intervertebral disc disorders with radiculopathy, lumbosacral region; M48.061 Spinal stenosis, lumbar region without neurogenic claudication; M48.07 Spinal stenosis, lumbosacral region; M47.26 Other spondylosis with radiculopathy, lumbar region; M47.27 Other spondylosis with radiculopathy, lumbosacral region
CPT/HCPCS: 72148

== ENCOUNTER → 2023-06-06 08:59 | Outpatient (CLI) | payer MEDICARE, SELFPAY ==
--- NOTE | 2023-06-06 09:00 | DI.CT.S_ITS ---
PROCEDURE: CT FACIAL BONES W CON INDICATIONS: palate swelling TECHNIQUE: After the administration of intravenous contrast, 2.5 mm axial sections acquired from the mid-neck to the frontal sinuses, with coronal and sagittal reformats. For radiation dose reduction, the following was used: automated exposure control, adjustment of mA and/or kV according to patient size. COMPARISON: None. FINDINGS: Image quality: Excellent. Soft tissues: Asymmetric soft tissue thickening of the left hard palate measuring approximately 1.4 x 1.5 cm. No erosive changes of the underlying hard palate. No enlarged lymph nodes. Bilateral lens replacements. Vascular: Visualized vascular structures appear patent throughout. Bony vascular foramina and canals appear normal. Bones: Facial bones appear intact, without fractures, erosions, or destruction. Visualized portions of the skull base and auditory canals also appear normal. Sinuses: Paranasal sinuses are aerated without fluid levels, mucosal thickening, or mucoceles. Mastoid air cells are aerated. IMPRESSION: Soft tissue lesion adjacent to the left hard palate measuring approximately 1.5 cm. No underlying erosive changes of the hard palate are seen. Neoplasm is not excluded and direct visualization is recommended with possible tissue sampling for further evaluation. Dictated by: Mark Weaver M.D. on 06/06/2023 at 11:19 Approved by: Mark Weaver M.D. on 06/06/2023 at 11:26
[2023-06-06 09:44] LABS: Alanine Aminotransferase 17 IU/L (<35); Albumin 3.9 g/dL (3.5-5.0); Albumin Globulin Ratio 1.4 (1.0-2.8); Alkaline Phosphatase 64 U/L (38-126); Aspartate Aminotransferase 25 IU/L (14-36); BUN Creatinine Ratio 17.3 (6-22); Bilirubin Total 0.8 mg/dL (0.2-1.3); Blood Urea Nitrogen 18 mg/dL (7-17); Calcium 9.3 mg/dL (8.4-10.2); Carbon Dioxide 28 mmol/L (22-32); Chloride 104 mmol/L (98-107); Estimated Glomerular Filt Rate 59 mL/min (>60); Globulin 2.7 g/dL (1.7-4.1); Glucose 90 mg/dL (80-110); HEMOLYSIS < 15 (0-50); Potassium 4.1 mmol/L (3.4-5.1); Sodium 135 mmol/L (137-145); Total Protein 6.6 g/dL (6.3-8.2)
[2023-06-06 11:56] LABS: Creatinine Urine Random 52.1 mg/dL
[2023-06-06 12:05] LABS: Microalbumin Urine Random < 0.6 mg/dL (0-1.6)
== END ==
PROVIDERS: Family Provider Student in an Organized Health Care Education/Training Program; PCP Nurse Practitioner; Referring Provider Nurse Practitioner; Visit Provider Nurse Practitioner
DX: R22.0 Localized swelling, mass and lump, head (principal); N17.9 Acute kidney failure, unspecified; E87.6 Hypokalemia
CPT/HCPCS: 36415; 70487; 80053; 82043; 82570; Q9967

== ENCOUNTER 2023-07-10 09:10 | Outpatient (CLI) | payer MEDICARE, SELFPAY ==
[2023-07-10] VITALS (10 sets, daily range): BP systolic 104–134; BP diastolic 53–75; PULSE 69–87; RESP 12–18; TEMP 36.7; O2SAT 91–99
--- NOTE | 2023-07-10 09:40 | DI.RAD.S_ITS ---
PROCEDURE: PAIN L INTERLAMINAR/CAUDAL INJ INDICATIONS: PARA RIGHT L3/4 TL EUGENE COMPARISON: None. FINDINGS: Fluoroscopic spot filming was performed to verify placement of spinal needles at the right L3-L4 level(s), as labeled on the films. Appropriate location(s) of the needle tip(s) was confirmed by injection of iodinated contrast. IMPRESSION: Intra procedural examination demonstrating appropriate positions of the needles. Dictated by: Mark Weaver M.D. on 07/10/2023 at 12:43 Approved by: Mark Weaver M.D. on 07/10/2023 at 12:44
[2023-07-10] MEDS: MIDAZOLAM 2 MG/2 ML VIAL IV (10:29)
[2023-07-10] MEDS: BETAMETHASONE 30 MG/5 ML MDV 6 MG INJ (10:34)
[2023-07-10] MEDS: DEXAMETHASONE 10 MG/ML VIAL INJ (10:35)
[2023-07-10] MEDS: BUPIVACAINE 0.25% (PF) VIAL 2 ML INJ (10:35)
[2023-07-10] MEDS: iopamidoL 15 ML VIAL 3 ML INJ (10:35)
[2023-07-10] MEDS: fentaNYL 100 MCG/2 ML INJ 50 MCG IV (10:37)
--- NOTE | 2023-07-10 10:55 | P.PCN_ITS ---
Date/Time/Diagnoses Date of procedure: 07/10/23 Time of procedure: 10:55 Pre-procedure diagnosis: 1. HNP WITH RADICULAR FEATURES, 2. MULTILEVEL CENTRAL STENOSIS, Post-procedure diagnosis: same Procedure Notes Procedure: 1. FLUOROSCOPICALLY GUIDED CONTRAST CONTROLLED INTERLAMINAR EPIDURAL STEROID INJECTION - L3/4 Indications: Dimitri is referred by RADHA Haji for treatment of Bilateral Foraminal Stenosis L>R LE symptoms. Physician: Eitan Guzman Total Fluoroscopy time (seconds): 27 Total sedation minutes: 21 Complications: none Procedure in detail & Post-procedure care: FINDINGS Multilevel Central Spinal Stenosis with Nerve Root Compression DESCRIPTION OF PROCEDURE Fluoroscopically guided, contrast-controlled L3/4 translaminar epidural steroid injection. Following review of allergy and review of potential side effects and complications, including, but not necessarily limited to, infection, allergic reaction, local tissue breakdown, temporary as well as permanent nerve injury, paralysis, stroke and possible , the patient indicated that the patient understood and agreed to proceed. An informed consent document was signed by the patient, witnessed by a nurse, and placed in the patient's chart. Additionally, other treatment options including modalities, medications, and physical therapy were reviewed with the patient. After review of previous anaesthesic history and IV conscious sedation the patient was deemed safe to proceed with today?s procedure with IV conscious sedation as ASA class II designation. Safety time-out was performed to confirm p atient ID, procedure to be performed and site of procedure. IV sedation was accomplished with a combination of 2mg of Versed and 50mcg of Fentanyl was administered by the RN after DO order, titrated to patient comfort during the course of the procedure while the patient remained responsive to all verbal commands. In the prone position, following sterile prep and drape of the lumbar region, the L3/4 translaminar space was identified fluoroscopically. The skin was anesthetized via a 25-gauge, 1.5-inch needle with 1% lidocaine solution. At this point, a 22-gauge short bevel spinal needle was atraumatically introduced and advanced under fluoroscopic guidance into the region of the L3/4 translaminar space. Depth was confirmed on lateral view. Radiological data, including multiple fluoroscopic views of the lumbar spine, reveal a spinal needle at the L3/4 translaminar space. Lateral views then show placement of the needle in the epidural space. Subsequent views show contrast material flowing superiorly and inferiorly in the epidural space. No vascular or intrathecal uptake is observed. At this point, using loss of resistance technique with saline and air, the epidural space was entered. This was confirmed following negative aspiration with injection of approximately 1.5 cc of Isovue 200, showing excellent epidural flow without vascular or intrathecal uptake. At this point, 1cc of 1% lidocaine solution combined with 2cc or 10mg of dexamethasone and 6mg of betamethasone was injected without incident. The patient tolerated the procedure well without signs or symptoms of complications prior to transfer to the recovery area continued monitoring without incident. The patient was then transferred to the recovery area where they were observed for an appropriate period of time after the injection. The patient reported a VAS score of 6 prior to the procedure and a post- procedure VAS of 0. POST OP INSTRUCTIONS The patient was provided a Pain Log to continue to record their response to the target-specific procedure prior to follow-up visit with their referring physician. Additionally, specific post-injection care instructions and a contact number to our office were provided if concerns arise regarding possible complications associated with the procedure are suspected.
== END 2023-07-10 11:07 | disposition home or self-care (01) ==
LOC: RAD 09:10
PROVIDERS: Family Provider Student in an Organized Health Care Education/Training Program; PCP Nurse Practitioner; Referring Provider Physical Medicine & Rehabilitation; Visit Provider Physical Medicine & Rehabilitation
DX: M51.16 Intervertebral disc disorders with radiculopathy, lumbar region (principal); M48.061 Spinal stenosis, lumbar region without neurogenic claudication
CPT/HCPCS: 62323; 99152; J0702; J1100; J2250; J3010; J3490

== ENCOUNTER 2023-10-21 12:55 | Outpatient (CLI) | payer MEDICARE, SELFPAY ==
[2023-10-21] VITALS (10 sets, daily range): BP systolic 92–145; BP diastolic 63–85; PULSE 66–74; RESP 11–22; TEMP 36.9; O2SAT 92–100
--- NOTE | 2023-10-21 13:30 | DI.RAD.S_ITS ---
PROCEDURE: PAIN L/S FACET INJ/BLK 1ST CHASITY INDICATIONS: SPONDYLOSIS COMPARISON: None. FINDINGS: Fluoroscopic spot filming was performed to verify placement of spinal needles at the L3-L5 level(s), as labeled on the films. Appropriate location(s) of the needle tip(s) was confirmed by injection of iodinated contrast. IMPRESSION: L3-L5 injections. Please see operative note for full details. Dictated by: Edu Dolan M.D. on 10/21/2023 at 17:39 Approved by: Edu Dolan M.D. on 10/21/2023 at 17:40
[2023-10-21] MEDS: MIDAZOLAM 2 MG/2 ML VIAL IV ×2 (13:59→14:05)
[2023-10-21] MEDS: iopamidoL 15 ML VIAL 3 ML INJ (14:02)
[2023-10-21] MEDS: BUPIVACAINE 0.5% (PF) 10 ML VIAL 5 ML INJ (14:03)
[2023-10-21] MEDS: LIDOCAINE 1% 20 ML 5 ML INJ (14:03)
--- NOTE | 2023-10-21 14:19 | P.PCN_ITS ---
Date/Time/Diagnoses Date of procedure: 10/21/23 Time of procedure: 14:19 Pre-procedure diagnosis: 1. FACET ARTHROPATHY Post-procedure diagnosis: same Procedure Notes Procedure: 1. BILATERAL- L4, L5 and S1 DIAGNOSTIC MB BLOCKS with LA Anesthetic Indications: Dimitri is referred by RADHA Haji for treatment of Bilateral Axial LBP. Physician: Eitan Guzman Total Fluoroscopy time (seconds): 14 Total sedation minutes: 16 Complications: none Procedure in detail & Post-procedure care: DESCRIPTION OF PROCEDURE Fluoroscopically guided, contrast-controlled bilateral L4, L5 and S1 medial branch blocks with 0.5cc of 0.5% Marcaine. Following review of allergy and review of potential side effects and complications, including, but not necessarily limited to, infection, allergic reaction, local tissue breakdown, nerve injury, paralysis, stroke and possible , the patient indicated that the patient understood and agreed to proceed. An informed consent document was signed by the patient, witnessed by a nurse, and placed in the patient's chart. After review of previous anaesthesic history and IV conscious sedation the patient was deemed safe to proceed with today's procedure with IV conscious sedation as ASA class II designation. Safety time-out was performed to confirm patient ID, procedure to be performed and site of procedure. IV sedation was accomplished with a combination of 4mg of Versed was administered by the RN after DO order, titrated to patient comfort during the course of the procedure while the patient remained responsive to all verbal commands In the prone position, following sterile prep and drape of the lumbar region, the right L4, L5 and S1 anatomical location of the medial branch of the dorsal ramus was identified fluoroscopically. Subsequently an anesthetic skin wheal using 1% lidocaine solution was initiated at each of the anatomical spots. Subsequently then a 22-gauge 3.5-inch spinal needle was atraumatically introduced and advanced under fluoroscopic guidance at each of the corresponding sites at the right L4, L5 and S1 MB. After negative aspiration, 0.2cc of Isovue 200 was injected, confirming placement without vascular or intrathecal uptake. Subsequently then 0.5cc of 0.5% Marcaine solution was injected at each of the corresponding sites at the right L4, L5 and S1 medial branch locations. The identical procedure was replicated on the left. The patient tolerated the procedure well without signs or symptoms of complications prior to transfer to the recovery area continued monitoring without incident. Post-procedure, the patient was monitored initiating provocative activities to measure the amount of relief from block of the facetogenic pain. The patient reported a VAS of 7 prior to the procedure and a post-procedure VAS of 1. It has been a pleasure to assist in the diagnostic and therapeutic care of your patient. POST OP INSTRUCTIONS The patient was provided with a Pain Log to complete over the next several hours and subsequent days prior to the patient's follow up with the ordering physician. If the patient has service specialist relief to the solution applied, then they may be a candidate for medial branch rhizotomy. The patient is aware, was provided, once again, with a Pain Log and will follow up with the referring physician for review and clinical correlation
== END 2023-10-21 14:38 | disposition home or self-care (01) ==
LOC: RAD 12:56
PROVIDERS: Family Provider Student in an Organized Health Care Education/Training Program; PCP Nurse Practitioner; Referring Provider Physical Medicine & Rehabilitation; Visit Provider Physical Medicine & Rehabilitation
DX: M47.816 Spondylosis without myelopathy or radiculopathy, lumbar region (principal); M47.817 Spondylosis without myelopathy or radiculopathy, lumbosacral region
CPT/HCPCS: 64493; 64494; 99152; J2250

== ENCOUNTER 2023-11-18 07:21 | Outpatient (CLI) | payer MEDICARE, SELFPAY ==
[2023-11-18] VITALS (9 sets, daily range): BP systolic 115–138; BP diastolic 69–93; PULSE 79–107; RESP 15–22; TEMP 37.3; O2SAT 95–99
--- NOTE | 2023-11-18 08:00 | DI.RAD.S_ITS ---
PROCEDURE: PAIN L/S FACET INJ/BLK 1ST CHASITY INDICATIONS: Next L3, L4 and L5 medial branch block SA COMPARISON: [facility], , PAIN L/S FACET INJ/BLK 1ST CHASITY, 10/21/2023, 14:00. FINDINGS: Fluoroscopic spot filming was performed to verify placement of spinal needles at the right L3 through L5 level(s), as labeled on the films. Appropriate location(s) of the needle tip(s) was confirmed by injection of iodinated contrast. IMPRESSION: Fluoroscopic guidance for and L3 through L5 medial branch block. Dictated by: Jameson Roper M.D. on 11/18/2023 at 12:49 Approved by: Jameson Roper M.D. on 11/18/2023 at 12:49
[2023-11-18] MEDS: MIDAZOLAM 2 MG/2 ML VIAL IV (08:09)
[2023-11-18] MEDS: LIDOCAINE 1% (PF) 5 ML 20 ML INJ (08:17)
[2023-11-18] MEDS: iopamidoL 15 ML VIAL 3 ML INJ (08:17)
[2023-11-18] MEDS: LIDOCAINE 2% INJ SDV 5ML 10 ML INJ (08:18)
--- NOTE | 2023-11-18 08:35 | P.PCN_ITS ---
Date/Time/Diagnoses Date of procedure: 11/18/23 Time of procedure: 08:36 Pre-procedure diagnosis: 1. FACET ARTHROPATHY Post-procedure diagnosis: same Procedure Notes Procedure: 1. BILATERAL L3, L4 AND L5 DIAGNOSTIC MB BLOCKS Indications: Dimitri is referred by RADHA Haji for treatment of Bilateral Axial LBP. Physician: Eitan Guzman Total Fluoroscopy time (seconds): 11 Total sedation minutes: 17 Complications: none Procedure in detail & Post-procedure care: DESCRIPTION OF PROCEDURE Fluoroscopically guided, contrast-controlled bilateral L3, L4 AND L5 medial branch blocks with 0.5cc of 2% Lidocaine. Following review of allergy and review of potential side effects and complications, including, but not necessarily limited to, infection, allergic reaction, local tissue breakdown, nerve injury, paralysis, stroke and possible , the patient indicated that the patient understood and agreed to proceed. An informed consent document was signed by the patient, witnessed by a nurse, and placed in the patient's chart. After review of previous anaesthesic history and IV conscious sedation the patient was deemed safe to proceed with today's procedure with IV conscious sedation as ASA class II designation. Safety time-out was performed to confirm patient ID, procedure to be performed and site of procedure. IV sedation was accomplished with a combination of 2mg of Versed was administered by the RN after DO order, titrated to patient comfort during the course of the procedure while the patient remained responsive to all verbal commands In the prone position, following sterile prep and drape of the lumbar region, the right L3, L4 AND L5 anatomical location of the medial branch of the dorsal ramus was identified fluoroscopically. Subsequently an anesthetic skin wheal using 1% lidocaine solution was initiated at each of the anatomical spots. Subsequently then a 22-gauge 3.5-inch spinal needle was atraumatically introduced and advanced under fluoroscopic guidance at each of the corresponding sites at the right L3, L4 and L5 MB. After negative aspiration, 0.2cc of Isovue 200 was injected, confirming placement without vascular or intrathecal uptake. Subsequently then 0.5cc of 2% Lidocaine solution was injected at each of the corresponding sites at the right L3, L4 and L5 medial branch locations. The identical procedure was replicated on the left. The patient tolerated the proc edure well without signs or symptoms of complications. The patient tolerated the procedure well without signs or symptoms of complications prior to transfer to the recovery area continued monitoring without incident. Post-procedure, the patient was monitored initiating provocative activities to measure the amount of relief from block of the facetogenic pain. The patient reported a VAS of 7 prior to the procedure and a post-procedure VAS of 1. It has been a pleasure to assist in the diagnostic and therapeutic care of your patient. POST OP INSTRUCTIONS The patient was provided with a Pain Log to complete over the next several hours and subsequent days prior to the patient's follow up with the ordering physician. If the patient has veneer glue spreader relief to the solution applied, then they may be a candidate for medial branch rhizotomy. The patient is aware, was provided, once again, with a Pain Log and will follow up with the referring physician for review and clinical correlation
== END 2023-11-18 08:49 | disposition home or self-care (01) ==
PROVIDERS: Family Provider Student in an Organized Health Care Education/Training Program; PCP Nurse Practitioner; Referring Provider Physical Medicine & Rehabilitation; Visit Provider Physical Medicine & Rehabilitation
DX: M47.816 Spondylosis without myelopathy or radiculopathy, lumbar region (principal)
CPT/HCPCS: 64493; 64494; 99152; J2250

== ENCOUNTER → 2023-11-19 09:12 | Outpatient (CLI) | payer MEDICARE, SELFPAY ==
[2023-11-19 10:08] LABS: Add Manual Diff / Slide Review NO; Basophils Absolute Auto 100 /uL (0-100); Basophils Percent Auto 0.9 % (0-2); Eosinophils Absolute Auto 300 /uL (0-450); Eosinophils Percent Auto 4.6 % (2-4); Hematocrit 41.3 % (36-46); Hemoglobin 14.1 g/dL (12.0-16.0); Lymphocytes Absolute Auto 1700 /uL (1100-4500); Mean Corpuscular HGB Conc 34.1 % (30-36); Mean Corpuscular Hemoglobin 29.2 PG (26-34); Mean Corpuscular Volume 85.6 fL (80-100); Monocytes Absolute Auto 500 /uL (0-900); Monocytes Percent Auto 7.8 % (3-14); Neutrophils Absolute Auto 4000 /uL (1500-7000); Neutrophils Percent Auto 60.7 % (50-75); Platelet Count 278 X10^3/uL (150-400); Red Blood Cell Count 4.82 X10^6/uL (4.0-5.2); Red Cell Distribution Width 13.7 % (11.6-14.8); White Blood Cell Count 6.5 X10^3/uL (4.5-11.0)
[2023-11-19 10:34] LABS: Alanine Aminotransferase 18 IU/L (<35); Albumin 4.1 g/dL (3.5-5.0); Alkaline Phosphatase 70 U/L (38-126); Aspartate Aminotransferase 28 IU/L (14-36); BUN Creatinine Ratio 15.1 (6-22); Bilirubin Total 0.7 mg/dL (0.2-1.3); Blood Urea Nitrogen 14 mg/dL (7-17); Calcium 9.6 mg/dL (8.4-10.2); Carbon Dioxide 27 mmol/L (22-32); Chloride 105 mmol/L (98-107); Cholesterol 156 mg/dL (140-199); Estimated Glomerular Filt Rate > 60 mL/min (>60); Globulin 2.1 g/dL (1.7-4.1); Glucose 97 mg/dL (80-110); HDL Cholesterol 63 mg/dL (40-60); HEMOLYSIS < 15 (0-50); LDL Cholesterol Calculated 65 mg/dL (<100); Potassium 4.5 mmol/L (3.4-5.1); Sodium 137 mmol/L (137-145); Total Protein 6.2 g/dL (6.3-8.2); Triglycerides 142 mg/dL (35-150)
[2023-11-19 10:48] LABS: Free T4, Direct Thyroxine 0.82 ng/dL (0.78-2.19)
[2023-11-19 11:01] LABS: Thyroid Stimulating Hormone 2.16 uIU/mL (0.47-4.68)
[2023-11-19 13:27] LABS: Creatinine Urine Random 21.26 mg/dL
[2023-11-19 13:44] LABS: Microalbumin Urine Random < 0.6 mg/dL (0-1.6)
== END ==
PROVIDERS: Family Provider Student in an Organized Health Care Education/Training Program; PCP Nurse Practitioner; Referring Provider Nurse Practitioner; Visit Provider Nurse Practitioner
DX: I12.9 Hypertensive chronic kidney disease with stage 1 through stage 4 chronic kidney disease, or unspecified chronic kidney disease (principal); N18.31 Chronic kidney disease, stage 3a; G47.00 Insomnia, unspecified; E78.2 Mixed hyperlipidemia; D86.9 Sarcoidosis, unspecified; N17.9 Acute kidney failure, unspecified; Z79.1 Long term (current) use of non-steroidal anti-inflammatories (NSAID)
CPT/HCPCS: 36415; 80053; 80061; 82043; 82570; 84439; 84443; 84481; 85025

== ENCOUNTER 2024-01-29 07:31 | Outpatient (CLI) | payer MEDICARE, SELFPAY ==
[2024-01-29] VITALS (14 sets, daily range): BP systolic 115–140; BP diastolic 56–97; PULSE 66–90; RESP 12–18; TEMP 36.1; O2SAT 95–100
--- NOTE | 2024-01-29 07:32 | DI.RAD.S_ITS ---
PROCEDURE: PAIN L/S MED/LAT N RFA BILAT INDICATIONS: Bilateral L3-L4 and L5 medial branch RFA COMPARISON: None. FINDINGS: Fluoroscopic spot filming was performed to verify placement of spinal needles at the bilateral L3, L4 and L5 levels level(s), as labeled on the films. Appropriate location(s) of the needle tip(s) was confirmed by injection of iodinated contrast. IMPRESSION: Bilateral L3, L4 and L5 needle placement for medial branch RFA. Dictated by: Rosa Guerrero MD, PhD on 01/30/2024 at 12:19 Approved by: Rosa Guerrero MD, PhD on 01/30/2024 at 12:20
[2024-01-29] MEDS: MIDAZOLAM 2 MG/2 ML VIAL 1 MG IV (08:12)
[2024-01-29] MEDS: fentaNYL 100 MCG/2 ML INJ 50 MCG IV (08:12)
[2024-01-29] MEDS: LIDOCAINE 1% 20 ML 5 ML INJ (08:20)
[2024-01-29] MEDS: BUPIVACAINE 0.5% (PF) 10 ML VIAL 5 ML INJ (08:20)
[2024-01-29] MEDS: MIDAZOLAM 5 MG/ML VIAL 1 MG IV (08:35)
--- NOTE | 2024-01-29 09:05 | P.PCN_ITS ---
Date/Time/Diagnoses Date of procedure: 01/29/24 Time of procedure: 09:05 Pre-procedure diagnosis: 1. RECALCITRANT FACET ARTHROPATHY Post-procedure diagnosis: same Procedure Notes Procedure: 1. BILATERAL L3, L4 AND L5 MEDIAL BRANCH RADIOFREQUENCY NEUROTOMY Indications: Dimitri is referred by GERSON Russell for treatment of facet arthropathy. Physician: Eitan Guzman Total Fluoroscopy time (seconds): 28 Total sedation minutes: 48 Complications: none Procedure in detail & Post-procedure care: DESCRIPTION OF PROCEDURE Bilateral L3, L4 and L5 medial branch radiofrequency neurotomy The patient is well known to this clinic having undergone previous facet injections with good but temporary relief. The patient has experienced appropriate, concordant relief with previous facet and median branch blocks but the patient's pain has been recalcitrant to further conservative measures. Therefore, based upon the patient's relief and persistent symptoms, the patient is considered an appropriate candidate for facet rhizotomy. All of the patient's questions regarding the risks versus benefits of the procedure, including, but not limited to, bleeding, infection, temporary as well as lasting nerve injury, paralysis, stroke, and , as well treatment alternatives were answered to satisfaction. After obtaining informed consent, denial of pertinent drug allergies, as well as being made aware of the potential risks of bleeding, infection, spinal cord trauma, paralysis, temporary and permanent nerve damage, seizure, stroke, and possible , the patient was brought to the fluoroscopy suite and positioned prone on the fluoroscopy table. After review of previous anaesthesic history and IV conscious sedation the patient was deemed safe to proceed with today's procedure with IV conscious sedation as ASA class II designation. Safety time-out was performed to confirm patient ID, procedure to be performed and site of procedure. IV sedation was accomplished with a combination of 2mg of Versed and 50mcg of Fentanyl administered by the RN after DO order, titrated to patient comfort during the course of the procedure while the patient remained responsive to all verbal commands. The lumbar region was prepped in usual sterile fashion and covered with a fenestrated drape in the usual sterile fashion. Appropriate monitors applied including pulse oximeter, pulse, and blood pressure for regular monitoring throughout the procedure. After local infiltration using 1% lidocaine, under fluoroscopic guidance, a 10- cm RF insulated needle with a 10-mm active tip was positioned parallel to the junction of the right the superior articulating process where the L5 medial branch resides. Needle placement was confirmed with motor stimulation of .5v on the right which produced local stimulation without radicular component. The stimulation was then increased to 2v with, once again, only local multifidus stimulation without radicular component. The needle was then removed and the identical procedure was performed along the length of the right L4 medial branch with motor stimulation at .7v on the right. The identical procedure was once again performed along the length of the right L3 and medial branch with motor stimulation of .5v on the right. The medial branches were then anesthetised with 0.5% marcaine. This was then followed by two discreet lesions performed at 80 degrees Celsius for 90 seconds each. The identical procedures were repeated on the left. The patient tolerated the procedure well without signs or symptoms of complications prior to transfer to the recovery area continued monitoring without incident. The patient was then transferred to the recovery area where they were observed for an appropriate period of time after the injection. The patient reported a VAS score of 8 prior to the procedure and a post-procedure VAS of 1. POST OP INSTRUCTIONS The patient was provided a Pain Log to continue to record the patient's response to the target-specific procedure prior to the patient's follow-up visit with the referring physician. Additionally, specific post-injection care instructions and a contact number to our office were provided if concerns arise regarding possible complications associated with the procedure are suspected.
== END 2024-01-29 09:14 | disposition home or self-care (01) ==
PROVIDERS: Family Provider Student in an Organized Health Care Education/Training Program; PCP Nurse Practitioner Family; Referring Provider Physical Medicine & Rehabilitation; Visit Provider Physical Medicine & Rehabilitation
DX: M47.816 Spondylosis without myelopathy or radiculopathy, lumbar region (principal)
CPT/HCPCS: 64635; 64636; 99152; 99153; J2250; J3010

== ENCOUNTER → 2024-09-30 12:56 | Outpatient (CLI) | payer MEDICARE, SELFPAY ==
--- NOTE | 2024-09-30 12:57 | DI.RAD.S_ITS ---
PROCEDURE: XR HIP W PEL IF DONE LT 2V INDICATIONS: Hip pain TECHNIQUE: AP pelvis with lateral view(s) of the left hip(s). COMPARISON: [facility], , XR HIP W PEL IF DONE RT 2V, 04/22/2023, 16:02. FINDINGS: Bones: No fractures or dislocations. Pelvic ring appears intact. No suspicious bony lesions. Mild symmetric degenerative changes of the bilateral hips and inferior lumbar spine. Overall findings are not significantly changed since 04/22/2023 Soft tissues: The visualized bowel gas pattern is normal. No suspicious soft tissue calcifications. IMPRESSION: No acute bony abnormality. Mild symmetric bilateral hip osteoarthrosis, not significantly changed since 04/22/2023. If symptoms persist with conservative management, consider cross-sectional imaging such as CT or MRI. Approved by: Sapna Borrero M.D.,Ph.D. on 10/01/2024 at 9:09
== END ==
PROVIDERS: PCP Nurse Practitioner Family; Referring Provider Nurse Practitioner Family; Visit Provider Nurse Practitioner Family
DX: M16.0 Bilateral primary osteoarthritis of hip (principal); M25.552 Pain in left hip
CPT/HCPCS: 73502

== ENCOUNTER → 2024-10-04 14:15 | Outpatient (CLI) | payer MEDICARE, SELFPAY ==
--- NOTE | 2024-10-04 14:16 | DI.MG.S_ITS ---
MM screening mammo BI: 10/04/2024. BI-RADS: 1 CLINICAL: 68-year old female for bilateral screening mammogram. Tyrer-Cuzick lifetime risk of 8.8%. No personal or first-degree family history of breast cancer. Current reported family history of breast cancer: sister's daughter and maternal aunt. PRIOR EXAMS 05/21/2023, 06/26/2021, 04/30/2019, 03/30/2014. MAMMOGRAPHY TECHNIQUE: 2D and 3D (tomosynthesis) digital mammographic views obtained, with additional images as needed for full coverage. Current study was also evaluated with a Computer Aided Detection (CAD) system. DENSITY B. There are scattered areas of fibroglandular density. MAMMOGRAPHY FINDINGS Bilateral: No suspicious mass, asymmetry, microcalcification, or other abnormality seen. IMPRESSION: * No evidence of malignancy. RECOMMENDATIONS Bilateral * Annual screening mammography. OVERALL ASSESSMENT CATEGORY BI-RADS-1: Negative. The [employer] recommends annual screening mammography beginning at age 40 for women with average risk of breast cancer. ELECTRONICALLY SIGNED: Ellie Zepeda M.D. on 10/04/2024 at 10:00:07 PM PT Interpreting Station ID: [id number]
== END ==
LOC: MAMMO 14:15
PROVIDERS: PCP Nurse Practitioner Family; Referring Provider Nurse Practitioner Family; Visit Provider Nurse Practitioner Family
DX: Z12.31 Encounter for screening mammogram for malignant neoplasm of breast (principal); Z80.3 Family history of malignant neoplasm of breast
CPT/HCPCS: 77063; 77067

== ENCOUNTER → 2024-12-20 09:08 | Outpatient (CLI) | payer MEDICARE, SELFPAY ==
--- NOTE | 2024-12-20 09:09 | DI.RAD.S_ITS ---
PROCEDURE: FL JOINT INJECTION LARGE LT INDICATIONS: left hip fluoroscopic guided intra-articular corticosteroid COMPARISON: None. TECHNIQUE: The indications, alternatives, benefits, risks, and complications of the procedure were explained to the patient. Written informed consent was obtained and placed in the chart. The patient was placed in an appropriate position on the fluoroscopy table, and a site was chosen for percutaneous access under fluoroscopic guidance. The site was prepped and draped in a sterile fashion. Local anesthetic was administered using a 1% lidocaine solution. A hypodermic or spinal needle was then used to access the symptomatic joint. Intra-articular location of the needle tip was confirmed by injecting a small amount of contrast, followed by steroid administration. The needle was then withdrawn, and a bandage applied to the puncture site. FINDINGS: Joint injected: Left hip Medications injected: 4 mL of 40 mg/mL Kenalog and 0.5% Ropivacaine mixture. Complications: None. IMPRESSION: Successful fluoroscopically guided administration of steroid and anaesthetic solution into the left hip joint. Dictated by: Mark Weaver M.D. on 12/21/2024 at 13:57 Approved by: Mark Weaver M.D. on 12/21/2024 at 14:06
[2024-12-20] MEDS: TRIAMCINOLONE 40 MG/ML VIAL INTRA-ARTI (09:51)
[2024-12-20] MEDS: LIDOCAINE 1% 20 ML INJ (09:51)
== END ==
LOC: RAD 09:09
PROVIDERS: PCP Nurse Practitioner Family; Referring Provider Orthopaedic Surgery; Visit Provider Orthopaedic Surgery
DX: M16.12 Unilateral primary osteoarthritis, left hip (principal)
CPT/HCPCS: 20610; 77002

== ENCOUNTER → 2025-01-17 09:34 | Outpatient (CLI) | payer MEDICARE, SELFPAY ==
--- NOTE | 2025-01-17 09:36 | EKG_ITS ---
[place] [id number] [place] [id number] Test Date: 2025-01-17 Pat Name: Dimitri Coon Department: [facility] Room: Gender: Female Shelf Filler: REBECA : 1955 Requested By: Order Number: [id number] Reading MD: Isra Oleary MD Measurements Intervals Mobile Rate: 65 P: -24 MN: 208 QRS: -25 QRSD: 86 T: -21 QT: 400 QTc: 416 Interpretive Statements Normal sinus rhythm Minimal voltage criteria for LVH, may be normal variant ( R in aVL ) Septal infarct , age undetermined Electronically Signed On 01-23-2025 9:02:32 PST by Isra Oleary MD
[2025-01-17 11:11] LABS: Hemoglobin A1C% w Est Avg Glu 4.9 % (4.0-6.0)
[2025-01-17 11:20] LABS: Albumin 3.8 g/dL (3.5-5.0)
[2025-01-17 11:34] LABS: Prealbumin 30.7 mg/dL (17.6-36.0)
[2025-01-17 11:38] LABS: Vitamin D 25 Hydroxy (D3) 48.1 ng/mL (30.0-100.0)
== END ==
PROVIDERS: PCP Nurse Practitioner Family; Referring Provider Nurse Practitioner Family; Visit Provider Orthopaedic Surgery Adult Reconstructive Orthopaedic Surgery
DX: Z01.818 Encounter for other preprocedural examination (principal); M16.12 Unilateral primary osteoarthritis, left hip
CPT/HCPCS: 36415; 82040; 82306; 83036; 84134; 93005; 93010